=== PATIENT | male | born 1950 | race American Indian/Alaskan Native ===

== ENCOUNTER 2016-06-04 11:04 | Outpatient (CLI) | payer MEDICARE ==
--- NOTE | 2016-06-04 13:30 | XRay Report ---
BILATERAL SHOULDER THREE VIEWS EACH: 06/04/16 11:04:00 CLINICAL: Pain. FINDINGS: Right: No fracture or dislocation. Minimal arthritis of the glenohumeral joint. Mild acromioclavicular joint arthritis. Normal soft tissues. Left: No fracture or dislocation. Mild glenohumeral joint arthritis and degenerative spur at the greater tuberosity of the humerus. Normal acromioclavicular joint. Normal soft tissues. IMPRESSION: Mild bilateral degenerative change.
--- NOTE | 2016-06-04 13:33 | XRay Report ---
CERVICAL SPINE WITH OBLIQUES FIVE VIEWS: 06/04/16 11:04:00 CLINICAL: Neck pain. FINDINGS: Straightening of the C-spine and loss of the normal cervical lordosis. Normal vertebral body alignment through T1. Extensive degenerative disc disease with narrowing of the disc space and large anterior osteophytes from C3-4 through C6-7. No neural foraminal stenosis. No fracture or subluxation. Normal soft tissues and airway. Mild left C3-4 and C4-5 neural foraminal narrowing. The right neuroforamen are intact. No fracture. IMPRESSION: Degenerative change as described above.
== END 2016-06-04 11:05 | disposition home or self-care (01) ==
LOC: SPVIMAG 11:04
DX: M47.892 Other spondylosis, cervical region (principal); M50.30 Other cervical disc degeneration, unspecified cervical region; M25.78 Osteophyte, vertebrae; M13.812 Other specified arthritis, left shoulder; M13.811 Other specified arthritis, right shoulder
CPT/HCPCS: 72050

== ENCOUNTER 2017-06-22 14:45 | Outpatient (CLI) | payer MEDICARE ==
--- NOTE | 2017-06-22 15:09 | XRay Report ---
XRAY CHEST TWO VIEWS: 06/22/17 14:45:00 CLINICAL: Cough. COMPARISON: None FINDINGS: Normal heart and pulmonary vasculature. The lungs are mildly hyperexpanded and clear.The bones and soft tissues are unremarkable. IMPRESSION: Mild pulmonary hyperinflation but otherwise normal.
== END 2017-06-22 14:46 | disposition home or self-care (01) ==
LOC: SPVIMAG 14:45
DX: R05 Cough (principal)
CPT/HCPCS: 71046

== ENCOUNTER 2018-11-10 18:00 | Inpatient (IN) | payer MEDICARE ==
[2018-11-10] MEDS ORDERED: SODIUM CHLORIDE 0.9% 500 ML 500 ML IV ONE ×4 (18:23→22:03)
--- NOTE | 2018-11-10 18:30 | Emergency Department Report ---
ED GI Bleed HPI - General Chief complaint: GI Bleed Stated complaint: GI BLEED/HYPOTENSION Time Seen by Provider: 11/10/18 18:14 Source: patient, EMS ( EMS documentation not available at time of chart dictation ), RN notes reviewed Mode of arrival: Stretcher Limitations: No Limitations - History of Present Illness Initial comments: Primary care Dr.: Dr Byrnes Cardiology: Dr Mcgee Past medical history: Heart disease, stent, high cholesterol, hypertension This is a 68-year-old gentleman. This patient is not known to this provider previously. The patient presents to the ER today with complaint of painless bright red blood per rectum. This started earlier on today. It was accompanied by a sensation of almost passing out. This is now resolved. Patient takes aspirin and prasgurel He denies taking other systemic anticoagulation. He thinks that he may have had a colonoscopy within the past decade, but is not sure. He does not know who per formed the colonoscopy. He does not know the results of recent colonoscopy. Bleeding is constant, does not radiate anywhere, does not have exacerbating or relieving factors. Besides near syncope, he denies additional complaints. MD complaint: gross hematochezia -: Sudden Quality: painless Consistency: constant Improves with: none Worsens with: none Context: blood thinners, near syncope - Related Data Home Medications Medication Instructions Recorded Confirmed Last Taken Aspirin EC 81 mg PO QDAY 07/31/15 07/31/15 07/29/15 Effient 10 mg PO DAILY 07/31/15 07/31/15 07/29/15 Lisinopril [Zestril TAB] 40 mg PO QDAY 07/31/15 07/31/15 07/30/15 Metoprolol [Lopressor TAB] 25 mg PO BID 07/31/15 07/31/15 07/31/15 Simvastatin 40 mg PO DAILY 07/31/15 07/31/15 07/31/15 Allergies Allergy/AdvReac Type Severity Reaction Status Date / Time No Known Allergies Allergy Verified 06/19/15 11:33 ED Review of Systems ROS: Stated complaint: GI BLEED/HYPOTENSION Other details as noted in HPI Comment: All other systems reviewed and negative Cardiovascular: other (near syncope) Gastrointestinal: hematochezia ED Past Medical Hx - Past Medical History Previous Medical History?: Yes Hx Hypertension: Yes Hx Heart Attack/AMI: Yes (2014) Hx Congestive Heart Failure: Yes Hx GERD: Yes Additional medical history: CAD. HIGH CHOLESTEROL - Surgical History Past Surgical History?: Yes Hx Coronary Stent: Yes (X1) - Social History Smoking Status: Current Every Day Smoker Substance Use Type: None - Medications Home Medications: Home Medications Medication Instructions Recorded Confirmed Last Taken Type Aspirin EC 81 mg PO QDAY 07/31/15 07/31/15 07/29/15 History Effient 10 mg PO DAILY 07/31/15 07/31/15 07/29/15 History Lisinopril [Zestril TAB] 40 mg PO QDAY 07/31/15 07/31/15 07/30/15 History Metoprolol [Lopressor TAB] 25 mg PO BID 07/31/15 07/31/15 07/31/15 History Simvastatin 40 mg PO DAILY 07/31/15 07/31/15 07/31/15 History ED Physical Exam - General Limitations: No Limitations General appearance: alert, anxious - Head Head exam: Present: atraumatic, normocephalic - Eye Eye exam: Present: normal appearance, EOMI. Absent: nystagmus - ENT ENT exam: Present: normal exam, normal orophraynx, mucous membranes moist, normal external ear exam - Neck Neck exam: Present: normal inspection, full ROM. Absent: tenderness, meningismus - Respiratory Respiratory exam: Present: normal lung sounds bilaterally. Absent: respiratory distress - Cardiovascular Cardiovascular Exam: Present: regular rate, normal rhythm, normal heart sounds. Absent: bradycardia, tachycardia, irregular rhythm, systolic murmur, diastolic murmur, rubs, gallop - GI/Abdominal GI/Abdominal exam: Present: soft. Absent: distended, tenderness, guarding, rebound, rigid, pulsatile mass - Rectal Rectal exam: Present: normal inspection, normal rectal tone, heme (+) stool, bloody stool, other (chaperoned by nurse Anjel Arizmendi). Absent: decreased rectal tone, heme (-) stool - Extremities Exam Extremities exam: Present: normal inspection, full ROM, other (2+ pulses noted in the bilateral upper, lower extremities. There is no long bone tenderness. Musculoskeletal compartments are soft. The pelvis is stable.). Absent: pedal edema, joint swelling, calf tenderness - Back Exam Back exam: Present: normal inspection, full ROM. Absent: tenderness, CVA tenderness (R), CVA tenderness (L), paraspinal tenderness, vertebral tenderness - Neurological Exam Neurological exam: Present: alert, oriented X3, normal gait, other (there is no facial droop. The tongue is midline. Extraocular movements are intact bilaterally. Patient speaking in full complete sentences. Shoulder shrug is intact bilaterally. Hearing is grossly intact bilaterally. Visual acuity intact to finger counting and color perception at a close distance. 5/5 strength 4 extremities. Sensation intact to light touch in 4 extremities.). Absent: motor sensory deficit - Psychiatric Psychiatric exam: Present: anxious - Skin Skin exam: Present: warm, dry, intact, normal color. Absent: rash ED Course Vital Signs 11/10/18 11/10/18 11/10/18 18:03 19:00 19:15 Temperature 98.4 F Pulse Rate 71 67 65 Respiratory 16 11 L 14 Rate Blood Pressure 145/69 Blood Pressure 145/69 140/74 149/81 [Right] O2 Sat by Pulse 97 97 98 Oximetry 11/10/18 11/10/18 11/10/18 19:30 19:45 20:05 Temperature Pulse Rate 64 74 67 Respiratory 10 L 19 15 Rate Blood Pressure Blood Pressure 149/81 157/76 116/55 [Right] O2 Sat by Pulse 99 98 97 Oximetry 11/10/18 11/10/18 11/10/18 20:06 20:15 20:42 Temperature Pulse Rate 68 76 65 Respiratory 15 15 11 L Rate Blood Pressure Blood Pressure 116/55 102/67 90/53 [Right] O2 Sat by Pulse 96 97 96 Oximetry - Reevaluation(s) Reevaluation #1: 11/10/18 18:28 Differential diagnosis, including not limited to: Angiodysplasia, upper GI bleed, lower GI bleed, diverticulosis, colonic malignancy Assessment and plan: [id number] gentleman, with bright red blood per rectum on examination. He is afebrile with reassuring vital signs. He denies additional injuries and additional complaints. 2 large-bore IVs ordered, ekg monitor tech ordered, IV fluids ordered, GI consult will be obtained, planned to admit the patient to the medical service for urgent GI consultation and colonoscopy. Discussed this with the patient who verbalizes understanding, and who is amenable to this plan of care. Reevaluation #2: 11/10/18 20:11 Laboratory studies reviewed and appreciated. Magnesium supplementation ordered. Additional IV fluids ordered. Upon coming back from the bathroom, while in the wheelchair, the patient had a vagal event, and temporarily lost consciousness. This lasted for a few seconds, and it is painless. The patient is now back to his baseline. Counseled patient to not walk to the bathroom, or do any walking whatsoever. Case is presented to Hospital nurse practitioner, Lauren Kuhn, who accepted the patient to the medical service. We have conveyed gastroenterology's request for cardiology consultation, will defer to the inpatient team to arrange this. Reevaluation #3: 11/10/18 20:37 Patient had large bright red blood bowel movement, almost a liter. He is now hypotensive, with blood pressure in the 70s. Additional IV fluids ordered. A repeat CBC ordered. We will re discuss with gastroenterology. Reevaluation #4: 11/10/18 21:05 Discussed with Brain at the [place] [facility]. They do not specifically recommend antidote or reversal agent or platelets at this time. They recommend generalized supportive care, identification of source of bleeding. Reevaluation #5: 11/10/18 22:12 CT angiogram shows active extravasation. Were discussed with gastroenterology, Dr. Moise, who has graciously involve the services of our interventional radiologist, Dr. Raghav Avilez is coming in as we speak to take the patient to the catheterization lab, for endovascular intervention. Hospital medicine team is updated, patient is up triaged to the ICU. At interventional radiology's request, we have discussed the case with our general surgeon on-call, Dr. Luis Hi, indicates he is available for emergent consultation and right hemicolectomy, if hemostasis could not be obtained otherwise. central line placed 11/11/18 00:25 - Consultations Consultation #1: 11/10/18 19:33 Discussed with gastroenterology, Dr. Moise They group will follow in consultation. - Central Line Placement Left IJ Consent Obtained: verbal consent, written consent, emergent situation Time Out Performed: Yes Patient Placed on Monitor/Pulse Ox: Yes MD Prep: gloves Central Line Prep: Povidone-Iodine 1%, Chlorhexidine scrub, sterile drapes applied Local Anesthesia Used: Lidocaine 2%, with Epi Amount of Anesthesia Used (mls): 8 Ultrasound Used for Placement: Yes Central Line Lumen Inserted: triple Bloods Obtained for Lab: No Central Line Position: good blood return, all ports aspirated, flus, sutured in place with 2-0 Dressing Applied: Tegaderm Post Procedure X-Ray: tip of catheter in good p Patient Tolerated Procedure: well Complications: none ED Medical Decision Making - Lab Data Result diagrams: 11/10/18 21:57 11/10/18 18:31 Vital Signs 11/10/18 18:03 Temperature 98.4 F Pulse Rate 71 Respiratory 16 Rate Blood Pressure 145/69 Blood Pressure 145/69 [Right] O2 Sat by Pulse 97 Oximetry - EKG Data -: EKG Interpreted by Me EKG shows normal: sinus rhythm Rate: normal - EKG Data 11/10/18 18:29 No endorsement of chest pain, the EKG is not consistent with ST elevation myocardial infarction. Sinus rhythm, 68 bpm, normal axis, QTC within normal limits, left ventricular hypertrophy, incomplete right bundle-branch block. - Radiology Data Radiology results: report reviewed, image reviewed interpreted by me: X-ray of the chest shows no acute disease, triple lumen catheter noted in the left hemithorax Print Report Referring Physician: GLORIA REED Patient Name: NGUYEN GODWIN Date of : 1950 Sex: Male Report Date: 2018-11-10 Report Status: Finalized Findings [facility] [address] [id number] Cat Scan Report Signed Patient: NGUYEN GODWIN MR#: [id number] 14 : 1950 Acct:[id number] Age/Sex: 68 / M ADM Date: 11/10/18 Loc: 4A [id number]: RODRICK STEEL MD Ordering Physician: GLORIA REED MD Date of Service: 11/10/18 Procedure(s): CT angio abdomen pelvis Accession Number(s): [id number] cc: GLORIA REED MD CTA ABDOMEN AND PELVIS WITH AND WITHOUT IV CONTRAST INDICATION: lower gi bleed CONTRAST: 100 cc Omnipaque 350 IV COMPARISON: None available. Three-plane MIP reconstructions were produced. All CT scans at this location are performed using CT dose reduction for ALARA by means of automated exposure control. FINDINGS: Lung bases show mild chronic changes but no infiltrates or masses. No pneumoperitoneum is seen. No urinary tract calculi or evidence of obstruction are seen. No evidence of bowel obstruction is noted. Colonic diverticulosis is seen involving multiple areas including the proximal right colon. No definite colonic wall thickening is seen with no evidence of acute diverticulitis. Some fluid is seen in the colon with some air-fluid levels noted but no dilatation is seen. Appendix appears within normal limits. No obvious small bowel abnormalities are seen. Stomach shows no significant abnormalities. Right renal cysts are seen. No other masses are noted. No focal inflammatory changes are seen. No free fluid is noted. No lymphadenopathy is seen. Gallbladder and bile ducts appear within normal limits. Aorta shows only mild atherosclerotic changes. No evidence of aortic dissection or aneurysmal dilatation is seen. No stenosis of significance is noted in the aorta. Celiac axis and superior mesenteric artery opacify well with no obvious stenosis. A small inferior mesenteric artery opacifies well. There are 3 left and 2 right renal arteries with mild atherosclerotic changes seen but no obvious significant stenosis identified and good flow seen distally. Good flow is seen in the iliac systems bilaterally with no aneurysmal dilatation or significant stenosis identified. Flow is seen in the upper femoral systems bilaterally without obvious significant abnormality. IMPRESSION: 1. No definite acute abnormalities are seen 2. No significant arterial abnormalities are noted Signer Name: Jose A Corley MD Signed: 11/10/2018 10:07 PM Workstation Name: [id number] Transcribed By: MONIKA Dictated By: Jose A Corley MD Electronically Authenticated By: Jose A Corley MD Signed Date/Time: 11/10/18 7357 Critical Care Time: Yes Critical care time in (mins) excluding proc time.: 120 Critical care attestation.: If time is entered above; I have spent that time in minutes in the direct care of this critically ill patient, excluding procedure time. ED Disposition Clinical Impression: LGI bleed, Hemorrhagic shock Disposition: OP ADMIT IP TO THIS HOSP Is pt being admited?: Yes Does the pt Need Aspirin: No Condition: Critical
[2018-11-10 18:48] LABS: Basophils # (Auto) 0.1 K/mm3 (0.0-0.1); Basophils % (Auto) 0.9 % (0.0-1.8); Eosinophils # (Auto) 0.1 K/mm3 (0.0-0.4); Eosinophils % (Auto) 0.9 % (0.0-4.3); Hematocrit 38.4 % (35.5-45.6); Hemoglobin 12.5 gm/dl (11.8-15.2); Lymphocytes # (Auto) 2.2 K/mm3 (1.2-5.4); Lymphocytes % (Auto) 21.9 % (13.4-35.0); Mean Corpuscular HGB Conc 33 % (32-34); Mean Corpuscular Volume 85 fl (84-94); Monocytes # (Auto) 0.8 K/mm3 (0.0-0.8); Monocytes % (Auto) 7.9 % (0.0-7.3); Red Cell Distribution Width 14.7 % (13.2-15.2)
[2018-11-10 19:08] LABS: Platelet Count 171 K/mm3 (140-440)
[2018-11-10 19:29] LABS: Albumin 3.3 g/dL (3.9-5)
[2018-11-10 19:33] LABS: INR 1.51 (0.87-1.13); Partial Thromboplastin Time 20.7 Sec. (24.2-36.6)
[2018-11-10 19:59] LABS: Alanine Aminotransferase 23 units/L (7-56); BUN/Creatinine Ratio 11; Blood Urea Nitrogen 13 mg/dL (9-20); Calcium 8.4 mg/dL (8.4-10.2); Hemolysis Index 53
[2018-11-10] MEDS ORDERED: MAGNESIUM SULFATE 2 GM/50 ML BAG IV ONE (20:11)
[2018-11-10] MEDS ORDERED: ACETAMINOPHEN 325 MG TAB PO PRN (20:30)
[2018-11-10] MEDS ORDERED: ONDANSETRON 4 MG/2 ML INJ IV PRN (20:30)
[2018-11-10] MEDS ORDERED: SODIUM CHLORIDE 0.9% 1000 ML 2,000 ML IV ONE (20:34)
[2018-11-10] MEDS ORDERED: SODIUM CHLORIDE 0.9% 1000 ML 2,000 ML ONE (20:36)
[2018-11-10 20:48] LABS: Hematocrit 31.5 % (35.5-45.6); Hemoglobin 10.2 gm/dl (11.8-15.2)
[2018-11-10] MEDS ORDERED: SODIUM CHLORIDE 0.9% 1000 ML 1,000 ML IV ONE (21:17)
[2018-11-10] MEDS ORDERED: LIDOCAINE 2%/EPINEPHRINE 1:100,000 VIAL (20 ML) INFILTRATI ONE (21:25)
[2018-11-10] MEDS ORDERED: LIDOCAINE (1%) 10 MG/1 ML VIAL 20 ML MDV ONE (21:30)
[2018-11-10] MEDS ORDERED: NORepinephrine/NS 4 MG-250 ML 4 MG/250 ML BAG IV SCH (22:00)
[2018-11-10 22:02] LABS: Hemoglobin 6.1 gm/dl (11.8-15.2)
[2018-11-10] MEDS ORDERED: DESMOPRESSIN ACETATE IV ONE (22:04)
[2018-11-10] MEDS ORDERED: SODIUM CHLORIDE 0.9% IV ONE (22:04)
[2018-11-10 22:05] LABS: Hematocrit 18.9 % (35.5-45.6)
--- NOTE | 2018-11-10 22:11 | Cat Scan Report ---
CTA ABDOMEN AND PELVIS WITH AND WITHOUT IV CONTRAST INDICATION: lower gi bleed CONTRAST: 100 cc Omnipaque 350 IV COMPARISON: None available. Three-plane MIP reconstructions were produced. All CT scans at this location are performed using CT d ose reduction for ALARA by means of automated exposure control. FINDINGS: Lung bases show mild chronic changes but no infiltrates or masses. No pneumoperitoneum is s een. No urinary tract calculi or evidence of obstruction are seen. No evidence of bowel obstruction i s noted. Colonic diverticulosis is seen involving multiple areas including the proximal right colon. No definite colonic wall thickening is seen with no evidence of acute diverticulitis. Some fluid is s een in the colon with some air-fluid levels noted but no dilatation is seen. Appendix appears within normal limits. No obvious small bowel abnormalities are seen. Stomach shows no significant abnormalit ies. Right renal cysts are seen. No other masses are noted. No focal inflammatory changes are seen. No james e fluid is noted. No lymphadenopathy is seen. Gallbladder and bile ducts appear within normal limits. Aorta shows only mild atherosclerotic changes. No evidence of aortic dissection or aneurysmal dilatat ion is seen. No stenosis of significance is noted in the aorta. Celiac axis and superior mesenteric a rtery opacify well with no obvious stenosis. A small inferior mesenteric artery opacifies well. There are 3 left and 2 right renal arteries with mild atherosclerotic changes seen but no obvious signific ant stenosis identified and good flow seen distally. Good flow is seen in the iliac systems bilateral ly with no aneurysmal dilatation or significant stenosis identified. Flow is seen in the upper femora l systems bilaterally without obvious significant abnormality. IMPRESSION: 1. No definite acute abnormalities are seen 2. No significant arterial abnormalities are noted Signer Name: Jose A Corley MD Signed: 11/10/2018 10:07 PM Workstation Name: [id number]
[2018-11-10] MEDS ORDERED: SODIUM CHLORIDE 0.9% 1000 ML 1,000 ML ONE (22:24)
[2018-11-10] MEDS ORDERED: MIDAZOLAM 2 MG/2 ML INJ ONE ×2 (22:36→23:15)
[2018-11-10] MEDS ORDERED: HEPARIN 10,000 UNITS/10 ML VIAL ONE (22:37)
[2018-11-10] MEDS ORDERED: fentaNYL 100 MCG/2 ML INJ ONE ×2 (22:37→23:16)
[2018-11-10] MEDS ORDERED: HEPARIN/NS 5000 UNIT/500ML 1,000 ML IR ONE (22:37)
[2018-11-10] MEDS ORDERED: LIDOCAINE 1%/EPINEPHRINE 1:100,000 VIAL (20 ML) INFILTRATI ONE (22:38)
[2018-11-10] MEDS ORDERED: SODIUM CHLORIDE 0.9% 500 ML 500 ML ONE (22:38)
--- NOTE | 2018-11-10 22:44 | History and Physical Report ---
History of Present Illness Date of examination: 11/10/18 Date of admission: 11/10/18 20:30 Chief complaint: Bright red blood per rectum History of present illness: 68-year-old -[place]ish male who is a current smoker with history of coronary artery disease status post stent 1, HLD, HTN, GERD, PR (2013), and CHF who presents to [facility] ED with complaints of painless bright red blood per rectum. Pt states that he started experiencing painless bright red blood per rectum earlier today. Shortly as passing the blood felt light headed and describes it as "feeling like he was going to pass out". Pt is currently takes aspirin and prasgurel. He denies use of any other anticoagulation. He states that he's had a colonoscopy in the past but does not recall the date, results, or physician. Denies: n/v/, fever, abdominal pain, rectal pain, recent rectal trauma, or hematuria Past History Past Medical History: acute PR (2013), CAD, GERD, heart failure, hypertension, hyperlipidemia Past Surgical History: Other (stent x1, ) Social history: , lives with family, smoking (current everday smoker) Family history: no significant family history Medications and Allergies Allergies Allergy/AdvReac Type Severity Reaction Status Date / Time No Known Allergies Allergy Verified 06/19/15 11:33 Home Medications Medication Instructions Recorded Confirmed Last Taken Type Aspirin EC 81 mg PO QDAY 07/31/15 07/31/15 07/29/15 History Effient 10 mg PO DAILY 07/31/15 07/31/15 07/29/15 History Lisinopril [Zestril TAB] 40 mg PO QDAY 07/31/15 07/31/15 07/30/15 History Metoprolol [Lopressor TAB] 25 mg PO BID 07/31/15 07/31/15 07/31/15 History Simvastatin 40 mg PO DAILY 07/31/15 07/31/15 07/31/15 History Active Meds: Active Medications Acetaminophen (Tylenol) 650 mg PO Q4H PRN PRN Reason: Pain MILD(1-3)/Fever >100.5/GAYTAN Docusate Sodium (Colace) 100 mg PO BID JACK Norepinephrine (Levophed Drip 4 Mg/Ns 250 Ml) 4 mg in 250 mls @ 7.5 mls/hr IV TITR JACK; Protocol Ondansetron HCl (Zofran) 4 mg IV Q6H PRN PRN Reason: Nausea And Vomiting Sodium Chloride (Sodium Chloride Flush Syringe 10 Ml) 10 ml IV BID JACK Sodium Chloride (Sodium Chloride Flush Syringe 10 Ml) 10 ml IV PRN PRN PRN Reason: LINE FLUSH Review of Systems All systems: negative Gastrointestinal: hematochezia (painless) Neurological: weakness Exam - Physical Exam Narrative exam: Physical exam General appearance: Present: No acute distress, alert and oriented 3, well developed, pleasant, adult -[place]ish male - EENT Eyes: Present: PERRL, EOM intact, ENT: hearing intact, normal dentition - Neck Neck: Present: supple, normal ROM - Respiratory Respiratory effort: Non-labored Respiratory: CTA - Cardiovascular Heart rate: 68 (bpm) Rhythm: SR Heart Sounds: Present: - Extremities Extremities: no ischemia, pulses intact, - Peripheral Assessment Peripheral Pulses: within normal limits - Abdominal General gastrointestinal: soft, non-tender, normal bowel sounds, + heme stool - Integumentary Integumentary: Present: warm, dry, - Musculoskeletal Musculoskeletal: Able to move all extremities, generalized weakness -Neurological Neurological: CN II-XII grossly intact - Psychiatric Psychiatric: cooperative - Constitutional Vitals: Temp Pulse Resp BP Pulse Ox 98.4 F 68 15 116/55 96 11/10/18 18:03 11/10/18 20:06 11/10/18 20:06 11/10/18 20:06 11/10/18 20:06 Results - Labs CBC & Chem 7: 11/10/18 21:57 11/10/18 18:31 Labs: Laboratory Last Values WBC 10.1 K/mm3 (4.5-11.0) 11/10/18 18:31 RBC 4.50 M/mm3 (3.65-5.03) 11/10/18 18:31 Hgb 6.1 gm/dl (11.8-15.2) L D 11/10/18 21:57 Hct 18.9 % (35.5-45.6) L* D 11/10/18 21:57 MCV 85 fl (84-94) 11/10/18 18:31 MCH 28 pg (28-32) 11/10/18 18:31 MCHC 33 % (32-34) 11/10/18 18:31 RDW 14.7 % (13.2-15.2) 11/10/18 18:31 Plt Count 171 K/mm3 (140-440) 11/10/18 18:31 Lymph % (Auto) 21.9 % (13.4-35.0) 11/10/18 18:31 [place] % (Auto) 7.9 % (0.0-7.3) H 11/10/18 18:31 Eos % (Auto) 0.9 % (0.0-4.3) 11/10/18 18:31 Baso % (Auto) 0.9 % (0.0-1.8) 11/10/18 18:31 Lymph # 2.2 K/mm3 (1.2-5.4) 11/10/18 18:31 [place] # 0.8 K/mm3 (0.0-0.8) 11/10/18 18:31 Eos # 0.1 K/mm3 (0.0-0.4) 11/10/18 18:31 Baso # 0.1 K/mm3 (0.0-0.1) 11/10/18 18:31 Seg Neutrophils % 68.4 % (40.0-70.0) 11/10/18 18:31 Seg Neutrophils # 6.9 K/mm3 (1.8-7.7) 11/10/18 18:31 PT 17.8 Sec. (12.2-14.9) H 11/10/18 18:31 INR 1.51 (0.87-1.13) H 11/10/18 18:31 APTT 20.7 Sec. (24.2-36.6) L 11/10/18 18:31 Sodium 141 mmol/L (137-145) 11/10/18 18:31 Potassium 4.1 mmol/L (3.6-5.0) 11/10/18 18:31 Chloride 106.1 mmol/L (98-107) 11/10/18 18:31 Carbon Dioxide 21 mmol/L (22-30) L 11/10/18 18:31 18 mmol/L 11/10/18 18:31 BUN 13 mg/dL (9-20) 11/10/18 18:31 1.2 mg/dL (0.8-1.5) 11/10/18 18:31 Estimated GFR > 60 ml/min 11/10/18 18:31 11 % 11/10/18 18:31 Glucose 107 mg/dL (75-100) H 11/10/18 18:31 POC Glucose 101 (70-105) 11/10/18 20:11 Calcium 8.4 mg/dL (8.4-10.2) 11/10/18 18:31 Magnesium 1.60 mg/dL (1.7-2.3) L 11/10/18 18:31 0.50 mg/dL (0.1-1.2) 11/10/18 18:31 AST 40 units/L (5-40) 11/10/18 18:31 ALT 23 units/L (7-56) 11/10/18 18:31 70 units/L (35-129) 11/10/18 18:31 987 units/L (55-170) H 11/10/18 18:31 5.9 g/dL (6.3-8.2) L 11/10/18 18:31 3.3 g/dL (3.9-5) L 11/10/18 18:31 1.3 % 11/10/18 18:31 Blood Type O POSITIVE 11/10/18 18:31 Antibody Screen Negative 11/10/18 18:31 Crossmatch See Detail 11/10/18 18:31 - Imaging and Cardiology Imaging and Cardiology: CT angiogram abdomen/pelvis: FINDINGS: Lung bases show mild chronic changes but no infiltrates or masses. No pneumoperitoneum is seen. No urinary tract calculi or evidence of obstruction are seen. No evidence of bowel obstruction is noted. Colonic diverticulosis is seen involving multiple areas including the proximal right colon. No definite colonic wall thickening is seen with no evidence of acute diverticulitis. Some fluid is seen in the colon with some air-fluid levels noted but no dilatation is seen. Appendix appears within normal limits. No obvious small bowel abnormalities are seen. Stomach shows no significant abnormalities. Right renal cysts are seen. No other masses are noted. No focal inflammatory changes are seen. No free fluid is noted. No lymphadenopathy is seen. Gallbladder and bile ducts appear within normal limits. Aorta shows only mild atherosclerotic changes. No evidence of aortic dissection or aneurysmal dilatation is seen. No stenosis of significance is noted in the aorta. Celiac axis and superior mesenteric artery opacify well with no obvious stenosis. A small inferior mesenteric artery opacifies well. There are 3 left and 2 right renal arteries with mild atherosclerotic changes seen but no obvious significant stenosis identified and good flow seen distally. Good flow is seen in the iliac systems bilaterally with no aneurysmal dilatation or significant stenosis identified. Flow is seen in the upper femoral systems bilaterally witho ut obvious significant abnormality. IMPRESSION: 1. No definite acute abnormalities are seen 2. No significant arterial abnormalities are noted Assessment and Plan Assessment and plan: 68-year-old -[place]ish male who is a current smoker with history of coronary artery disease status post stent 1, HLD, HTN, GERD, PR (2013), and CHF who presents to [facility] ED with complaints of painless bright red blood per rectum. Pt states that he started experiencing painless bright red blood per rectum earlier today. On presentation pt was normotensive with hgb within normal limits. He was alert and oriented x3, and able to maintain conversation. Around 8pm while coming back from restroom via wheelchair pt had vagal event and briefly lost consciousness. Approximately 30 minutes later he had large bright red blood bowel movement. He became hypotensive, with SBP in the 70's. He received fluid resuscitation, and was transfued. A central line was placed and he was started on levophed gtt to maintain MAP of 65. CT angiogram shows active extravasation GI and IR was updated on pt's current condition. At this time pt is in cardiac cath technician undergoing embolization. Lower GI Bleed ??Suspicion for Active Ascending colonic bleed- per IR -+ heme stool -G I following -Pt taken to cardiac cath technician for embolization. If fails will Gen. surgery for hemicolectomy. Hemorrhagic shock -acute blood loss -hbg now 6.1 (trending down from 12.5 on admission) -Transfused Hypotension -SBP in 70's -Unresponsive to food resuscitation -Started on levophed gtt Tobacco abuse -Current every day smoker -Nicotine patch when necessary -Performed counseling when patient more stable DVT PPX -active gi bleed. holding all anticoagulation Advance Directives: No VTE prophylaxis?: Mechanical Reason for no VTE Prophylaxis: Bleeding Plan of care discussed with patient/family: Yes
--- NOTE | 2018-11-10 22:51 | XRay Report ---
CHEST 1 VIEW 2150 INDICATION / CLINICAL INFORMATION: central line placement. COMPARISON: 06/22/2017 FINDINGS: SUPPORT DEVICES: A left jugular central line is seen with tip in the area of the proximal left brachi ocephalic vein. HEART / MEDIASTINUM: Stable LUNGS / PLEURA: No significant pulmonary or pleural abnormality. No pneumothorax. ADDITIONAL FINDINGS: No significant additional findings. IMPRESSION: Left jugular line position as above without obvious complication Signer Name: Jose A Corley MD Signed: 11/10/2018 10:46 PM Workstation Name: [id number]
[2018-11-10] MEDS ORDERED: SODIUM CHLORIDE 0.9% 500 ML 1,000 ML ONE (23:04)
[2018-11-10] MEDS ORDERED: GELATIN SPONGE SIZE 50 TP ONE (23:11)
[2018-11-10] MEDS ORDERED: PROPOFOL 0 MG/0 ML BOTTLE IV ONE (23:12)
--- NOTE | 2018-11-11 00:25 | Consultation ---
History of Present Illness - Reason for Consult Consult date: 11/11/18 Massive GI bleed - History of Present Illness 68-year-old -[place] male who is a current smoker with history of co ronary artery disease status post stent 1, HLD, HTN, GERD, [place] (2013), and CHF who presents to [facility] ED with complaints of painless bright red blood per rectum. Pt states that he started experiencing painless bright red blood per rectum earlier today. Shortly as passing the blood felt light headed and describes it as "feeling like he was going to pass out". Pt is currently takes aspirin and prasgurel. He denies use of any other anticoagulation. He states that he's had a colonoscopy in the past but does not recall the date, results, or physician. Denies: n/v/, fever, abdominal pain, rectal pain, recent rectal trauma, or hematuria GI was consulted and requested review of CT scan by vascular which demonstrated extravasation from the ascending colon. Patient is currently hemodynamically unstable and hypotensive. In order to correct his hypotension, levophed was started and the dose was maxed. With max levophed, his pressure normalized. Large amount of blood/clots were around the room and actively being passed. Patient was in active distress. Past History Past Medical History: acute SC (2013), CAD, GERD, heart failure, hypertension, hyperlipidemia Past Surgical History: Other (stent x1, ) Social history: , lives with family, smoking (current everday smoker) Family history: no significant family history Medications and Allergies Allergies Allergy/AdvReac Type Severity Reaction Status Date / Time No Known Allergies Allergy Verified 06/19/15 11:33 Home Medications Medication Instructions Recorded Confirmed Last Taken Type Aspirin EC 81 mg PO QDAY 07/31/15 07/31/15 07/29/15 History Effient 10 mg PO DAILY 07/31/15 07/31/15 07/29/15 History Lisinopril [Zestril TAB] 40 mg PO QDAY 07/31/15 07/31/15 07/30/15 History Metoprolol [Lopressor TAB] 25 mg PO BID 07/31/15 07/31/15 07/31/15 History Simvastatin 40 mg PO DAILY 07/31/15 07/31/15 07/31/15 History Active Meds: Active Medications Acetaminophen (Tylenol) 650 mg PO Q4H PRN PRN Reason: Pain MILD(1-3)/Fever >100.5/GAYTAN Docusate Sodium (Colace) 100 mg PO BID [facility] Norepinephrine (Levophed Drip 4 Mg/Ns 250 Ml) 4 mg in 250 mls @ 7.5 mls/hr IV TITR JACK; Protocol Last Admin: 11/10/18 22:00 Dose: 2 mcg/min, 7.5 mls/hr Documented by: Nicotine (Habitrol) 14 mg TD QDAY [facility] Ondansetron HCl (Zofran) 4 mg IV Q6H PRN PRN Reason: Nausea And Vomiting Sodium Chloride (Sodium Chloride Flush Syringe 10 Ml) 10 ml IV BID [facility] Sodium Chloride (Sodium Chloride Flush Syringe 10 Ml) 10 ml IV PRN PRN PRN Reason: LINE FLUSH Review of Systems ROS unobtainable: due to mental status Exam - Constitutional Vitals: Temp Pulse Resp BP Pulse Ox 98.4 F 65 11 L 90/53 96 11/10/18 18:03 11/10/18 20:42 11/10/18 20:42 11/10/18 20:42 11/10/18 20:42 General appearance: Present: severe distress (GI bleeding, active, in discomfort) - EENT Eyes: Present: EOM intact ENT: hearing intact - Respiratory Respiratory effort: normal - Abdominal General gastrointestinal: Present: other (active clots passing) - Psychiatric Psychiatric: agitated Results - Labs CBC & Chem 7: 11/11/18 07:24 11/11/18 07:24 Labs: Abnormal lab results 11/10/18 11/10/18 11/10/18 Range/Units 18:31 18:31 18:31 Hgb (11.8-15.2) gm/dl Hct (35.5-45.6) % [place] % (Auto) 7.9 H (0.0-7.3) % PT 17.8 H (12.2-14.9) Sec. INR 1.51 H (0.87-1.13) APTT 20.7 L (24.2-36.6) Sec. Carbon Dioxide 21 L (22-30) mmol/L Glucose 107 H (75-100) mg/dL Magnesium 1.60 L (1.7-2.3) mg/dL Total Creatine Kinase 987 H (55-170) units/L Total Protein 5.9 L (6.3-8.2) g/dL Albumin 3.3 L (3.9-5) g/dL Crossmatch 11/10/18 11/10/18 11/10/18 Range/Units 18:31 20:38 21:57 Hgb 10.2 L 6.1 L D (11.8-15.2) gm/dl Hct 31.5 L D 18.9 L* D (35.5-45.6) % [place] % (Auto) (0.0-7.3) % PT (12.2-14.9) Sec. INR (0.87-1.13) APTT (24.2-36.6) Sec. Carbon Dioxide (22-30) mmol/L Glucose (75-100) mg/dL Magnesium (1.7-2.3) mg/dL Total Creatine Kinase (55-170) units/L Total Protein (6.3-8.2) g/dL Albumin (3.9-5) g/dL Crossmatch See Detail - Imaging and Cardiology CT scan - abdomen: report reviewed, image reviewed Assessment and Plan 68-year-old male with complex past medical history on Effient status post 2 units packed red blood cell transfusion with recommendations for 2 more units packed red blood cell transfusion with DDAVP, and FFP. On max levophed. The patient had a CT scan demonstrating active extravasation from the descending colon. Gastroenterology was consult at an consult to vascular for further evaluation. Patient will be brought emergently for angiography with possible embolization. Patient hemodynamically unstable. Dr. Blevins of general surgery was contacted and family was notified that if this fails to control bleeding, patient will probably require a right extended colectomy.
[2018-11-11] MEDS ORDERED: SODIUM CHLORIDE 0.9% 500 ML 500 ML IV ONE (00:27)
--- NOTE | 2018-11-11 00:44 | Post Operative Note ---
Date of procedure: 11/11/18 Pre-op diagnosis: Massive lower GI bleed Post-op diagnosis: other (Massive lower GI bleed, Left neck large hematoma) Findings: During the case the patient developed a large left neck hematoma around the catheter which was expressed requiring further evaluation. At the conclusion, the catheter was venous, and there was no arterial extravasation. Placed pressure dressing on the left neck. Further evaluation of the catheter tomorrow. Procedure: 1. Ultrasound guided access of the right femoral artery 2. Selection of the celiac artery with angiography 3. Selection of the SMA with angiography 4. Selection of the colic branch of the ileocolic artery 5. Selection of the right colic artery 6. Selection of the ascending branch of the right colic artery 7. Coil embolization of distal marginal branches of the ascending branch of the right colic artery with a 2 mm x 4 cm and 2 mm x 6 cm coil 8. Repeat SMA angiography 9. Selection of the thoracic aorta with aortography 10. Injection of contrast through the left internal jugular vein nontunneled noncuffed triple lumen catheter 11. Ultrasound guided access of the right femoral vein 12. Fluoroscopic guided placement of a right femoral vein triple lumen nontunneled noncuffed catheter Anesthesia: MAC Surgeon: PRANEETH BO Estimated blood loss: minimal Condition: stable Disposition: ICU
--- NOTE | 2018-11-11 00:48 | Operative Report ---
Operative Report Operative Report: EXAM: 1. Ultrasound guided access of the right femoral artery 2. Selection of the celiac artery with angiography 3. Selection of the SMA with angiography 4. Selection of the colic branch of the ileocolic artery 5. Selection of the right colic artery 6. Selection of the ascending branch of the right colic artery 7. Coil embolization of distal marginal branches of the ascending branch of the right colic artery with a 2 mm x 4 cm and 2 mm x 6 cm coil 8. Repeat SMA angiography 9. Selection of the thoracic aorta with aortography 10. Injection of contrast through the left internal jugular vein nontunneled noncuffed triple lumen catheter 11. Ultrasound guided access of the right femoral vein 12. Fluoroscopic guided placement of a right femoral vein triple lumen nontunneled noncuffed catheter DATE: 11/11/18 WEIR FISHERMAN: PRANEETH BO MD INDICATION: Massive lower GI bleed with hemodynamic instability on vasopressors with recent placement of a left internal jugular triple-lumen by the emergency room. MEDICATIONS: Please see nursing report for full details. DEVICES: 2 mm x 4 cm coil 2 mm x 6 cm coil CONTRAST: Please see nursing report for full details PROCEDURE: The risks, benefits, and alternatives were discussed with the patient and his family; written informed consent was obtained by his daughter. The patient's groins were prepped and draped in a sterile fashion as soon as the patient entered the [facility]. 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 I suspected there was an anomalous branching pattern with one of the branches representing the high takeoff of the profunda femoral artery and another the lateral femoral circumflex artery with another vessel being the superficial femoral artery. The middle vessel, largest of the 3, large enough to accommodate a closure device, was selected. Under direct ultrasound guidance, the femoral artery was accessed with a 21-gauge micropuncture needle. 0.018 inch wire was passed into the aorta. Needle was exchanged for transitional dilator. Wire was exchanged for 0.035 inch wire, the transitional dilator was exchanged for a 5 Kinyarwanda sheath. SOS 2 catheter was used to select the celiac artery and digital subtraction angiography was performed demonstrating a normal branching pattern without extravasation or pseudoaneurysm. Catheter was then used to select the SMA and digital subtraction angiography was performed demonstrating extravasation of contrast arising from the hepatic flexure. Using a renegade STC microcatheter and a choice PT floppy wire, the ileocolic artery was selected. Digital subtraction angiography was performed demonstrating a colic branch passing cephalad which was selected. Digital subtraction angiography was performed demonstrating extravasation through collaterals from the ascending branch of the right colic artery. The right colic artery was diminutive in size which is why I originally selected the ileocolic artery believing this may be the right colic artery. At this point, the patient began to develop a hematoma at the left neck triple lumen catheter site and pressure had to be held. Anesthesia was present and we considered intubating the patient for airway protection but the hematoma was expressible. I decided to deal with the massive lower GI bleed before transitioning my attention to the left neck hematoma. Right colic artery was then selected the ascending branch of the right colic artery was then selected. Digital subtraction angiography was performed demonstrating extravasation from the hepatic flexure arising from branches from the descending branch of the right colic artery. These were selected and 2 mm x 4 cm coil was introduced and subsequently a 2 mm x 6 cm coil was introduced into the marginal artery next to these branches. Digital subtraction angiography was repeated demonstrating no extravasation from the hepatic flexure. Microcatheter was removed and the base catheter was aspirated. Digital subtraction angiography was performed through the base catheter demonstrating no extravasation in the hepatic flexure. At this time, one of the ports of the left internal jugular line was removed and the hub was unlocked and there was no significant bleeding most compatible with a venous puncture. Contrast was injected through the line demonstrating the catheter is in the left subclavian vein. Left subclavian vein, brachiocephalic vein and SVC were patent. At this time, the catheter was exchanged for a pigtail catheter which was used to select the thoracic aorta. Digital subtraction angiography was performed demonstrating normal 4 vessel branching with brachiocephalic, right subclavian, common carotid, left common carotid, and left subclavian artery. There is no extravasation or pseudoaneurysm. The tip of the left internal jugular catheter was partially superimposed on the left subclavian artery, but the access site was not compatible with an arterial puncture. I contacted the emergency room physician who told me it was difficult accessing the left internal jugular vein which may be responsible for the hematoma. The arterial catheter was then exchanged over a wire for 0.035 inch wire, and digital subtraction angiography was performed to the sheath. There was no right common femoral artery with a branch of the profunda femoral artery arising from the inferior epigastric artery, the lateral femoral circumflex arising anomalously from the same level, but a lateral location and the superficial femoral artery arose from this this region. Sheath was removed over the wire and the Pro-glide was used to close the femoral artery achieving immediate hemostasis. Sterile dressing applied. At this point, I decided to obtain access for a femoral vein catheter in order to avoid use of the left internal jugular vein line. Ultrasound is used to identify the right common femoral vein which was patent. Under direct ultrasound guidance, the right common femoral vein was accessed with a 21-gauge micropuncture needle. 0.018 inch wire was passed into the IVC. Needle was exchanged for transitional dilator. Wire was exchanged for 0.035 inch wire. Transitional dilator was exchanged for serial dilators and ultimately a 7 Kinyarwanda triple-lumen catheter. Pressure dressing applied to the right groin and the left neck. The left neck hematoma was expressed prior to pressure dressing placement. Patient tolerated the procedure well. At the conclusion of the procedure, all of the patient's pressors were weaned off and he remained normotensive. FINDINGS: Please see procedure note above. IMPRESSION: 1. Successful coil embolization of arterial extravasation as described above with selection of multiple vessels with angiography. 2. Successful selection of the thoracic aorta with aortography. 3. Successful venography through the left internal jugular vein catheter. 4. Successful ultrasound and fluoroscopically guided placement of a right common femoral vein triple lumen catheter.
[2018-11-11] MEDS ORDERED: SODIUM CHLORIDE 0.9% 1000 ML 1,000 ML IV SCH (03:00)
[2018-11-11 08:24] LABS: Eosinophils % (Auto) 0.1 % (0.0-4.3); Hematocrit 38.6 % (35.5-45.6); Hemoglobin 12.7 gm/dl (11.8-15.2); Lymphocytes # (Auto) 1.2 K/mm3 (1.2-5.4); Lymphocytes % (Auto) 9.8 % (13.4-35.0); Mean Corpuscular HGB Conc 33 % (32-34); Mean Corpuscular Volume 88 fl (84-94); Monocytes # (Auto) 0.9 K/mm3 (0.0-0.8); Monocytes % (Auto) 7.1 % (0.0-7.3); Red Blood Count 4.41 M/mm3 (3.65-5.03); Red Cell Distribution Width 15.3 % (13.2-15.2)
[2018-11-11 08:29] LABS: Platelet Count 88 K/mm3 (140-440)
[2018-11-11 08:48] LABS: BUN/Creatinine Ratio 15; Blood Urea Nitrogen 16 mg/dL (9-20); Calcium 7.2 mg/dL (8.4-10.2); Hemolysis Index 10
--- NOTE | 2018-11-11 10:05 | Gastroenterology Consultation ---
<RAMONITA CARABALLO - Last Filed: 11/11/18 10:26> History of Present Illness - Reason for Consult Consult date: 11/11/18 [facility]IB Requesting physician: GLORIA REED - History of Present Illness Patient is a 68 y/o male with PMH of CAD ([place] 2013-s/p stent; on ASA/prasgurel), HLD, HTN, GERD, and CHF who presented to ED overnight with c/o rectal bleeding with bright red blood with associated lightheadedness to which GI has been consulted. Upon admission, CTA showed extravasation from the ascending colon to which he underwent a coil embolization of distal marginal branches of the ascending branch of the right colic artery by IR. This morning patient was resting in bed w/o acute distress, now HD stable off pressor support with no reports of any further active signs of bleeding this am. Denies fever, CP, SOB, wt loss, abd pain, N/V, hematemesis, melena, diarrhea, or constipation. No known Fhx of GI cancers. Last colonoscopy, according to chart review, was in [address] Lipscomb which showed polypoid mass descending colon, rectal/descending polyp, diverticulosis, and internal hemorrhoids (also underwent EGD at that time that showed gastric ulcer, gastritis, and duodenitis; patient denies any f/u s/p procedures). Past History Past Medical History: acute [place] (2013), CAD, GERD, heart failure, hypertension, hyperlipidemia Past Surgical History: Other (stent x1, ) Social history: , lives with family, smoking (current everday smoker) Family history: no significant family history Medications and Allergies Allergies Allergy/AdvReac Type Severity Reaction Status Date / Time No Known Allergies Allergy Verified 06/19/15 11:33 Home Medications Medication Instructions Recorded Confirmed Last Taken Type Aspirin EC 81 mg PO QDAY 07/31/15 11/11/18 07/29/15 History Effient 10 mg PO DAILY 07/31/15 11/11/18 07/29/15 History Lisinopril [Zestril TAB] 40 mg PO QDAY 07/31/15 11/11/18 07/30/15 History Metoprolol [Lopressor TAB] 25 mg PO BID 07/31/15 11/11/18 07/31/15 History Simvastatin 40 mg PO DAILY 07/31/15 11/11/1807/30/16 History Active Meds: Active Medications Acetaminophen (Tylenol) 650 mg PO Q4H PRN PRN Reason: Pain MILD(1-3)/Fever >100.5/GAYTAN Docusate Sodium (Colace) 100 mg PO BID JACK Norepinephrine (Levophed Drip 4 Mg/Ns 250 Ml) 4 mg in 250 mls @ 7.5 mls/hr IV TITR JACK; Protocol Last Admin: 11/10/18 22:00 Dose: 2 mcg/min, 7.5 mls/hr Documented by: Sodium Chloride (Nacl 0.9% 1000 Ml) 1,000 mls @ 75 mls/hr IV DIRECT JACK Last Admin: 11/11/18 03:36 Dose: 75 mls/hr Documented by: Nicotine (Habitrol) 14 mg TD QDAY JACK Ondansetron HCl (Zofran) 4 mg IV Q6H PRN PRN Reason: Nausea And Vomiting Sodium Chloride (Sodium Chloride Flush Syringe 10 Ml) 10 ml IV BID JACK Sodium Chloride (Sodium Chloride Flush Syringe 10 Ml) 10 ml IV PRN PRN PRN Reason: LINE FLUSH medications reviewed/updated as required Review of Systems - Review of Systems All systems: negative Gastrointestinal: BRBPR, no abdominal pain, no nausea, no vomiting Exam - Constitutional Vital Signs: Temp Pulse Resp BP Pulse Ox 97.5 F L 77 12 134/67 98 11/11/18 06:15 11/11/18 09:00 11/11/18 09:00 11/11/18 09:00 11/11/18 09:00 General appearance: no acute distress - EENT Eyes: PERRL, EOM intact ENT: hearing intact - Respiratory Respiratory effort: normal Respiratory: bilateral: CTA - Cardiovascular Rhythm: regular - Gastrointestinal General gastrointestinal: Present: soft, non-tender, non-distended, normal bowel sounds - Neurologic Neurological: alert and oriented x3 - Labs CBC & Chem 7: 11/11/18 07:24 11/11/18 07:24 Lab Results: Laboratory Results - last 24 hr 11/10/18 11/10/18 11/10/18 18:31 18:31 18:31 WBC 10.1 RBC 4.50 Hgb 12.5 Hct 38.4 MCV 85 MCH 28 MCHC 33 RDW 14.7 Plt Count 171 Lymph % (Auto) 21.9 [place] % (Auto) 7.9 H Eos % (Auto) 0.9 Baso % (Auto) 0.9 Lymph # 2.2 [place] # 0.8 Eos # 0.1 Baso # 0.1 Seg Neutrophils % 68.4 Seg Neutrophils # 6.9 PT 17.8 H INR 1.51 H APTT 20.7 L Sodium 141 Potassium 4.1 Chloride 106.1 Carbon Dioxide 21 L Anion Gap 18 BUN 13 Creatinine 1.2 Estimated GFR > 60 BUN/Creatinine Ratio 11 Glucose 107 H POC Glucose Calcium 8.4 Magnesium 1.60 L Total Bilirubin 0.50 AST 40 ALT 23 Alkaline Phosphatase 70 Total Creatine Kinase 987 H Total Protein 5.9 L Albumin 3.3 L Albumin/Globulin Ratio 1.3 Blood Type Antibody Screen Crossmatch 11/10/18 11/10/18 11/10/18 18:31 20:11 20:38 WBC RBC Hgb 10.2 L Hct 31.5 L D MCV MCH MCHC RDW Plt Count Lymph % (Auto) [place] % (Auto) Eos % (Auto) Baso % (Auto) Lymph # [place] # Eos # Baso # Seg Neutrophils % Seg Neutrophils # PT INR APTT Sodium Potassium Chloride Carbon Dioxide Anion Gap BUN Creatinine Estimated GFR BUN/Creatinine Ratio Glucose POC Glucose 101 Calcium Magnesium Total Bilirubin AST ALT Alkaline Phosphatase Total Creatine Kinase Total Protein Albumin Albumin/Globulin Ratio Blood Type O POSITIVE Antibody Screen Negative Crossmatch See Detail 11/10/18 11/11/18 11/11/18 21:57 07:24 07:24 WBC 12.2 H RBC 4.41 Hgb 6.1 L D 12.7 D Hct 18.9 L* D 38.6 D MCV 88 MCH 29 MCHC 33 RDW 15.3 H Plt Count 88 L Lymph % (Auto) 9.8 L [place] % (Auto) 7.1 Eos % (Auto) 0.1 Baso % (Auto) 0.0 Lymph # 1.2 [place] # 0.9 H Eos # 0.0 Baso # 0.0 Seg Neutrophils % 83.0 H Seg Neutrophils # 10.2 H PT INR APTT Sodium 145 Potassium 4.8 Chloride 113.6 H Carbon Dioxide 19 L Anion Gap 17 BUN 16 Creatinine 1.1 Estimated GFR > 60 BUN/Creatinine Ratio 15 Glucose 111 H POC Glucose Calcium 7.2 L Magnesium Total Bilirubin AST ALT Alkaline Phosphatase Total Creatine Kinase Total Protein Albumin Albumin/Globulin Ratio Blood Type Antibody Screen Crossmatch Assessment and Plan 1.LGIB -H/H 12.7/38.6 s/p blood transfusion (on admission dropped to 6.1/18.9) -continue to monitor H/H and transfuse as needed -no active signs of bleeding this am- currently HD stable -Upon admission, CTA showed extravasation from the ascending colon -s/p coil embolization of distal marginal branches of the ascending branch of the right colic artery by IR -last colonoscopy [address] Lipscomb that showed polypoid mass descending colon, rectal/descending polyp, diverticulosis, and internal hemorrhoids -etiology-most likely diverticular in nature -however given hx of polypoid mass lesion with no f/u, recommend colonoscopy as outpatient upon discharge for further evaluation -okay to start clear liquid diet- if no further bleeding advance to cardiac diet at dinner -continue supportive care -if no further bleeding and labs stable in am, patient okay to be d/c per GI standpoint with f/u in 1-2 weeks in clinic <PRANEETH UPTON - Last Filed: 11/11/18 14:13> Medications and Allergies Active Meds: Active Medications Acetaminophen (Tylenol) 650 mg PO Q4H PRN PRN Reason: Pain MILD(1-3)/Fever >100.5/GAYTAN Docusate Sodium (Colace) 100 mg PO BID [facility] Last Admin: 11/11/18 11:11 Dose: 100 mg Documented by: Nicotine (Habitrol) 14 mg TD QDAY [facility] Last Admin: 11/11/18 11:10 Dose: 14 mg Documented by: Ondansetron HCl (Zofran) 4 mg IV Q6H PRN PRN Reason: Nausea And Vomiting Sodium Chloride (Sodium Chloride Flush Syringe 10 Ml) 10 ml IV BID [facility] Last Admin: 11/11/18 11:11 Dose: 10 ml Documented by: Sodium Chloride (Sodium Chloride Flush Syringe 10 Ml) 10 ml IV PRN PRN PRN Reason: LINE FLUSH Exam - Constitutional Vital Signs: Temp Pulse Resp BP Pulse Ox 97.5 F L 79 18 127/74 98 11/11/18 06:15 11/11/18 12:30 11/11/18 12:30 11/11/18 12:30 11/11/18 12:20 - Labs CBC & Chem 7: 11/11/18 07:24 11/11/18 07:24 Lab Results: Laboratory Results - last 24 hr 11/10/18 11/10/18 11/10/18 18:31 18:31 18:31 WBC 10.1 RBC 4.50 Hgb 12.5 Hct 38.4 MCV 85 MCH 28 MCHC 33 RDW 14.7 Plt Count 171 Lymph % (Auto) 21.9 [place] % (Auto) 7.9 H Eos % (Auto) 0.9 Baso % (Auto) 0.9 Lymph # 2.2 [place] # 0.8 Eos # 0.1 Baso # 0.1 Seg Neutrophils % 68.4 Seg Neutrophils # 6.9 PT 17.8 H INR 1.51 H APTT 20.7 L Sodium 141 Potassium 4.1 Chloride 106.1 Carbon Dioxide 21 L Anion Gap 18 BUN 13 Creatinine 1.2 Estimated GFR > 60 BUN/Creatinine Ratio 11 Glucose 107 H POC Glucose Calcium 8.4 Magnesium 1.60 L Total Bilirubin 0.50 AST 40 ALT 23 Alkaline Phosphatase 70 Total Creatine Kinase 987 H Total Protein 5.9 L Albumin 3.3 L Albumin/Globulin Ratio 1.3 Blood Type Antibody Screen Crossmatch 11/10/18 11/10/18 11/10/18 18:31 20:11 20:38 WBC RBC Hgb 10.2 L Hct 31.5 L D MCV MCH MCHC RDW Plt Count Lymph % (Auto) [place] % (Auto) Eos % (Auto) Baso % (Auto) Lymph # [place] # Eos # Baso # Seg Neutrophils % Seg Neutrophils # PT INR APTT Sodium Potassium Chloride Carbon Dioxide Anion Gap BUN Creatinine Estimated GFR BUN/Creatinine Ratio Glucose POC Glucose 101 Calcium Magnesium Total Bilirubin AST ALT Alkaline Phosphatase Total Creatine Kinase Total Protein Albumin Albumin/Globulin Ratio Blood Type O POSITIVE Antibody Screen Negative Crossmatch See Detail 11/10/18 11/11/18 11/11/18 21:57 07:24 07:24 WBC 12.2 H RBC 4.41 Hgb 6.1 L D 12.7 D Hct 18.9 L* D 38.6 D MCV 88 MCH 29 MCHC 33 RDW 15.3 H Plt Count 88 L Lymph % (Auto) 9.8 L [place] % (Auto) 7.1 Eos % (Auto) 0.1 Baso % (Auto) 0.0 Lymph # 1.2 [place] # 0.9 H Eos # 0.0 Baso # 0.0 Seg Neutrophils % 83.0 H Seg Neutrophils # 10.2 H PT INR APTT Sodium 145 Potassium 4.8 Chloride 113.6 H Carbon Dioxide 19 L Anion Gap 17 BUN 16 Creatinine 1.1 Estimated GFR > 60 BUN/Creatinine Ratio 15 Glucose 111 H POC Glucose Calcium 7.2 L Magnesium Total Bilirubin AST ALT Alkaline Phosphatase Total Creatine Kinase Total Protein Albumin Albumin/Globulin Ratio Blood Type Antibody Screen Crossmatch Assessment and Plan Patient seen and examined. I have reviewed the advanced practitioner's evaluation, assessment, and plan, and agree with them. I note the following additions: spoke with IR, patient is at slightly elevated risk for colonic ischemia, so if develops severe abd pain please eval for colonic ischemia Otherwise will need OPD follow up in 1-2 weeks with colonoscopy to follow to assess lesion seen previously - Patient Problems (1) LGI bleed Current Visit: Yes Status: Acute
--- NOTE | 2018-11-11 10:18 | Progress Note ---
Assessment and Plan Full Consult dictated: GI eval below noted. Discussed case with Dr. Avilez last night. apparent successful embolization of colonic hepatic flexure diverticular bleed. Pt has stabilized post procedure. Off pressors. h/h as below Abd soft, non tender rec - Keep NPO for 24 - 48 hrs as h/h's are monitored. will follow as needed. History of Present Illness - Reason for Consult Consult date: 11/11/18 LGIB Requesting physician: GLORIA REED - History of Present Illness Patient is a 68 y/o male with PMH of CAD ([place] 2013-s/p coronary stent), HLD, HTN, GERD, and CHF who presented to ED overnight with c/o rectal bleeding with bright red blood with associated lightheadedness to which GI has been consulted. Upon admission, he became hypotensive with CTA showing extravasation from the ascending colon to which he underwent coil embolization of distal marginal branches of the ascending branch of the right colic artery by IR. s/p embolization 68-year-old -[place] male who is a current smoker with history of coronary artery disease status post stent 1, HLD, HTN, GERD, [place] (2013), and CHF who presents to [facility] ED with complaints of painless bright red blood per rectum. Pt states that he started experiencing painless bright red blood per rectum earlier today. Shortly as passing the blood felt light headed and describes it as "feeling like he was going to pass out". Pt is currently takes aspirin and prasgurel. He denies use of any other anticoagulation. He states that he's had a colonoscopy in the past but does not recall the date, results, or physician. Denies: n/v/, fever, abdominal pain, rectal pain, recent rectal trauma, or hematuria GI was consulted and requested review of CT scan by vascular which demonstrated extravasation from the ascending colon. Past History Past Medical History: acute [place] (2013), CAD, GERD, heart failure, hypertension, hyperlipidemia Past Surgical History: Other (stent x1, ) Social history: , lives with family, smoking (current everday smoker) Family history: no significant family history This is a 68-year-old gentleman. This patient is not known to this provider previously. The patient presents to the ER today with complaint of painless bright red blood per rectum. This started earlier on today. It was accompanied by a sensation of almost passing out. This is now resolved. Patient takes as pirin and prasgurel - Past Medical History Previous Medical History?: Yes Hx Hypertension: Yes Hx Heart Attack/AMI: Yes (2013) Hx Congestive Heart Failure: Yes Hx GERD: Yes Additional medical history: CAD. HIGH CHOLESTEROL - Surgical History Past Surgical History?: Yes Hx Coronary Stent: Yes (X1) - Social History Smoking Status: Current Every Day Smoker Substance Use Type: None CT angiogram shows active extravasation. Were discussed with gastroenterology, Dr. Moise, who has graciously involve the services of our interventional radiologist, Dr. Raghav Avilez is coming in as we speak to take the patient to the catheterization lab, for endovascular intervention. Hospital medicine team is updated, patient is up triaged to the ICU. At interventional radiology's request, we have discussed the case with our general surgeon on-call, Dr. Luis Hi, indicates he is available for emergent consultation and right hemicolectomy, if hemostasis could not be obtained otherwise. Past History Past Medical History: acute [place] (2013), CAD, GERD, heart failure, hypertension, hyperlipidemia Past Surgical History: Other (stent x1, ) Social history: , lives with family, smoking (current everday smoker) Family history: no significant family history Selected Entries 11/11/18 11/11/18 02:01 09:00 Pulse Rate 77 Blood Pressure 86/53 134/67 Laboratory Tests 11/10/18 11/11/18 20:38 07:24 Hgb 10.2 L 12.7 D Hct 31.5 L D 38.6 D Objective Vital Signs - 12hr 11/10/18 11/10/18 11/10/18 22:20 22:28 22:32 Temperature 99.0 F Pulse Rate 73 77 Respiratory 15 14 Rate Blood Pressure Blood Pressure 117/58 128/67 [Right] O2 Sat by Pulse 97 98 Oximetry 11/11/18 11/11/18 11/11/18 01:10 01:40 02:01 Temperature 98.3 F Pulse Rate 79 80 Respiratory 16 Rate Blood Pressure 86/53 Blood Pressure [Right] O2 Sat by Pulse 98 98 Oximetry 11/11/18 11/11/18 11/11/18 02:13 02:35 02:46 Temperature 98 F 98.2 F 98.3 F Pulse Rate 78 78 75 Respiratory 19 16 15 Rate Blood Pressure 85/58 98/55 114/62 Blood Pressure [Right] O2 Sat by Pulse 97 98 Oximetry 11/11/18 11/11/18 11/11/18 03:15 03:45 04:00 Temperature 98.1 F 98.3 F Pulse Rate 75 73 Respiratory 18 15 Rate Blood Pressure 99/58 110/57 Blood Pressure [Right] O2 Sat by Pulse 99 98 Oximetry 11/11/18 11/11/18 11/11/18 04:13 04:30 04:45 Temperature 98.5 F 98.3 F 98 F Pulse Rate 74 73 71 Respiratory 15 15 14 Rate Blood Pressure 125/67 129/67 127/69 Blood Pressure [Right] O2 Sat by Pulse 98 99 98 Oximetry 11/11/18 11/11/18 11/11/18 04:50 05:00 05:10 Temperature Pulse Rate 67 75 74 Respiratory 13 13 14 Rate Blood Pressure 129/67 134/70 134/70 Blood Pressure [Right] O2 Sat by Pulse 99 99 98 Oximetry 11/11/18 11/11/18 11/11/18 05:15 05:20 05:30 Temperature 98.2 F Pulse Rate 75 74 74 Respiratory 17 14 14 Rate Blood Pressure 125/68 127/69 125/68 Blood Pressure [Right] O2 Sat by Pulse 99 98 98 Oximetry 11/11/18 11/11/18 11/11/18 05:40 05:45 05:50 Temperature 97.6 F Pulse Rate 78 77 72 Respiratory 15 14 Rate Blood Pressure 125/68 127/68 127/68 Blood Pressure [Right] O2 Sat by Pulse 98 99 98 Oximetry 11/11/18 11/11/18 11/11/18 06:00 06:10 06:15 Temperature 97.5 F L Pulse Rate 74 78 79 Respiratory 15 13 14 Rate Blood Pressure 127/68 127/68 117/66 Blood Pressure [Right] O2 Sat by Pulse 98 99 99 Oximetry 11/11/18 11/11/18 11/11/18 06:20 06:30 06:40 Temperature Pulse Rate 78 75 75 Respiratory 13 18 15 Rate Blood Pressure 117/66 118/67 108/72 Blood Pressure [Right] O2 Sat by Pulse 99 99 98 Oximetry 11/11/18 11/11/18 11/11/18 06:50 07:00 07:10 Temperature Pulse Rate 73 74 77 Respiratory 15 16 17 Rate Blood Pressure 108/72 108/72 126/64 Blood Pressure [Right] O2 Sat by Pulse 98 98 98 Oximetry 11/11/18 11/11/18 11/11/18 07:20 07:30 07:40 Temperature Pulse Rate 76 81 80 Respiratory 15 16 11 L Rate Blood Pressure 126/64 131/67 131/67 Blood Pressure [Right] O2 Sat by Pulse 99 99 98 Oximetry 11/11/18 11/11/18 11/11/18 07:50 08:00 08:10 Temperature Pulse Rate 86 Respiratory 13 Rate Blood Pressure 131/67 133/71 133/71 Blood Pressure [Right] O2 Sat by Pulse 99 99 99 Oximetry 11/11/18 11/11/18 11/11/18 08:20 08:30 08:40 Temperature Pulse Rate 83 79 78 Respiratory 16 16 15 Rate Blood Pressure 133/71 142/69 133/71 Blood Pressure [Right] O2 Sat by Pulse 98 98 98 Oximetry 11/11/18 11/11/18 08:50 09:00 Temperature Pulse Rate 79 77 Respiratory 15 12 Rate Blood Pressure 133/71 134/67 Blood Pressure [Right] O2 Sat by Pulse 98 98 Oximetry - Labs 11/11/18 07:24 11/11/18 07:24 Diabetes panel 11/10/18 11/11/18 Range/Units 18:31 07:24 Sodium 141 145 (137-145) mmol/L Potassium 4.1 4.8 (3.6-5.0) mmol/L Chloride 106.1 113.6 H (98-107) mmol/L Carbon Dioxide 21 L 19 L (22-30) mmol/L BUN 13 16 (9-20) mg/dL Creatinine 1.2 1.1 (0.8-1.5) mg/dL Glucose 107 H 111 H (75-100) mg/dL Calcium 8.4 7.2 L (8.4-10.2) mg/dL AST 40 (5-40) units/L ALT 23 (7-56) units/L Alkaline Phosphatase 70 (35-129) units/L Total Protein 5.9 L (6.3-8.2) g/dL Albumin 3.3 L (3.9-5) g/dL Calcium panel 11/10/18 11/11/18 Range/Units 18:31 07:24 Calcium 8.4 7.2 L (8.4-10.2) mg/dL Albumin 3.3 L (3.9-5) g/dL Pituitary panel 11/10/18 11/11/18 Range/Units 18:31 07:24 Sodium 141 145 (137-145) mmol/L Potassium 4.1 4.8 (3.6-5.0) mmol/L Chloride 106.1 113.6 H (98-107) mmol/L Carbon Dioxide 21 L 19 L (22-30) mmol/L BUN 13 16 (9-20) mg/dL Creatinine 1.2 1.1 (0.8-1.5) mg/dL Glucose 107 H 111 H (75-100) mg/dL Calcium 8.4 7.2 L (8.4-10.2) mg/dL Adrenal panel 11/10/18 11/11/18 Range/Units 18:31 07:24 Sodium 141 145 (137-145) mmol/L Potassium 4.1 4.8 (3.6-5.0) mmol/L Chloride 106.1 113.6 H (98-107) mmol/L Carbon Dioxide 21 L 19 L (22-30) mmol/L BUN 13 16 (9-20) mg/dL Creatinine 1.2 1.1 (0.8-1.5) mg/dL Glucose 107 H 111 H (75-100) mg/dL Calcium 8.4 7.2 L (8.4-10.2) mg/dL Total Bilirubin 0.50 (0.1-1.2) mg/dL AST 40 (5-40) units/L ALT 23 (7-56) units/L Alkaline Phosphatase 70 (35-129) units/L Total Protein 5.9 L (6.3-8.2) g/dL Albumin 3.3 L (3.9-5) g/dL
--- NOTE | 2018-11-11 10:27 | Progress Note ---
Assessment and Plan Assessment and plan: 68-year-old -[place] male who is a current smoker with history of coronary artery disease status post stent 1, HLD, HTN, GERD, [place] (2013), and CHF who presents to [facility] ED with complaints of painless bright red blood per rectum. Pt states that he started experiencing painless bright red blood per rectum earlier today. On presentation pt was normotensive with hgb within normal limits. He was alert and oriented x3, and able to maintain conversation. Around 8pm while coming back from restroom via wheelchair pt had vagal event and briefly lost consciousness. Approximately 30 minutes later he had large bright red blood bowel movement. He became hypotensive, with SBP in the 70's. He received fluid resuscitation, and was transfued. A central line was placed and he was started on levophed gtt to maintain MAP of 65. CT angiogram shows active extravasation GI and IR evaluated the patient status post embolization. No new Episodes of bleeding, received 2 units PRBC --Lower GI Bleed s/p embolization per IR -G I following No new Episodes of bleeding --Hemorrhagic shock acute blood loss -s/p 2 units PRBC transfusion, Hb 12.7 Monitor H&H and transfuse as needed --Hypotension/hemorrhagic shock On Levophed, today patient's blood pressures are reasonable Closely monitor, off LEVOPHED --History of CAD status post PCI; Management per cardiology --Ongoing Tobacco abuse Smoking cessation, nicotine patch as needed DVT prophylaxis; SCD No pharmacologic anticoagulation due to GI bleeding --CODE STATUS Monitor closely and adjust management as needed Consults and Recommendations noted and appreciated Patient is stable to be transferred out of ICU to telemetry if OK with GI Critical care time 35 minutes History Interval history: Sincerely and examined in ICU this morning medical records reviewed Patient was admitted to the first GI bleeding, status post embolization Patient feels slightly better, 2 units of PRBC transfusion Alert awake oriented Vital signs noted Hospitalist Physical - Constitutional Vitals: Temp Pulse Resp BP Pulse Ox 97.5 F L 77 12 134/67 98 11/11/18 06:15 11/11/18 09:00 11/11/18 09:00 11/11/18 09:00 11/11/18 09:00 General appearance: Present: no acute distress, well-nourished - EENT Eyes: Present: PERRL, EOM intact - Neck Neck: Present: supple, normal ROM - Respiratory Respiratory effort: normal Respiratory: bilateral: diminished, negative: rales, rhonchi, wheezing - Cardiovascular Rhythm: regular Heart Sounds: Present: S1 & S2 - Extremities Extremities: no ischemia, No edema - Abdominal General gastrointestinal: soft, non-tender, non-distended, normal bowel sounds - Integumentary Integumentary: Present: clear, warm - Psychiatric Psychiatric: appropriate mood/affect, cooperative - Neurologic Neurologic: moves all extremities Results - Labs CBC & Chem 7: 11/11/18 07:24 11/11/18 07:24 Labs: Laboratory Last Values WBC 12.2 K/mm3 (4.5-11.0) H 11/11/18 07:24 RBC 4.41 M/mm3 (3.65-5.03) 11/11/18 07:24 Hgb 12.7 gm/dl (11.8-15.2) D 11/11/18 07:24 Hct 38.6 % (35.5-45.6) D 11/11/18 07:24 MCV 88 fl (84-94) 11/11/18 07:24 MCH 29 pg (28-32) 11/11/18 07:24 MCHC 33 % (32-34) 11/11/18 07:24 RDW 15.3 % (13.2-15.2) H 11/11/18 07:24 Plt Count 88 K/mm3 (140-440) L 11/11/18 07:24 Lymph % (Auto) 9.8 % (13.4-35.0) L 11/11/18 07:24 [place] % (Auto) 7.1 % (0.0-7.3) 11/11/18 07:24 Eos % (Auto) 0.1 % (0.0-4.3) 11/11/18 07:24 Baso % (Auto) 0.0 % (0.0-1.8) 11/11/18 07:24 Lymph # 1.2 K/mm3 (1.2-5.4) 11/11/18 07:24 [place] # 0.9 K/mm3 (0.0-0.8) H 11/11/18 07:24 Eos # 0.0 K/mm3 (0.0-0.4) 11/11/18 07:24 Baso # 0.0 K/mm3 (0.0-0.1) 11/11/18 07:24 Seg Neutrophils % 83.0 % (40.0-70.0) H 11/11/18 07:24 Seg Neutrophils # 10.2 K/mm3 (1.8-7.7) H 11/11/18 07:24 PT 17.8 Sec. (12.2-14.9) H 11/10/18 18:31 INR 1.51 (0.87-1.13) H 11/10/18 18:31 APTT 20.7 Sec. (24.2-36.6) L 11/10/18 18:31 Sodium 145 mmol/L (137-145) 11/11/18 07:24 Potassium 4.8 mmol/L (3.6-5.0) 11/11/18 07:24 Chloride 113.6 mmol/L (98-107) H 11/11/18 07:24 Carbon Dioxide 19 mmol/L (22-30) L 11/11/18 07:24 17 mmol/L 11/11/18 07:24 BUN 16 mg/dL (9-20) 11/11/18 07:24 1.1 mg/dL (0.8-1.5) 11/11/18 07:24 Estimated GFR > 60 ml/min 11/11/18 07:24 15 % 11/11/18 07:24 Glucose 111 mg/dL (75-100) H 11/11/18 07:24 POC Glucose 101 (70-105) 11/10/18 20:11 Calcium 7.2 mg/dL (8.4-10.2) L 11/11/18 07:24 Magnesium 1.60 mg/dL (1.7-2.3) L 11/10/18 18:31 0.50 mg/dL (0.1-1.2) 11/10/18 18:31 AST 40 units/L (5-40) 11/10/18 18:31 ALT 23 units/L (7-56) 11/10/18 18:31 70 units/L (35-129) 11/10/18 18:31 987 units/L (55-170) H 11/10/18 18:31 5.9 g/dL (6.3-8.2) L 11/10/18 18:31 3.3 g/dL (3.9-5) L 11/10/18 18:31 1.3 % 11/10/18 18:31 Blood Type O POSITIVE 11/10/18 18:31 Antibody Screen Negative 11/10/18 18:31 Crossmatch See Detail 11/10/18 18:31 Active Medications - Current Medications Current Medications: Generic Name Dose Route Start Last Admin Trade Name Freq PRN Reason Stop Dose Admin Acetaminophen 650 mg 11/10/18 20:30 Tylenol PO Q4H PRN Pain MILD(1-3)/Fever >100.5/GAYTAN Docusate Sodium 100 mg 11/10/18 22:00 Colace PO BID JACK Norepinephrine 4 mg in 250 mls @ 7.5 mls/hr 11/10/18 22:00 11/10/18 22:00 Levophed Drip 4 Mg/Ns 250 Ml IV 2 mcg/min TITR JACK 7.5 mls/hr Administration Protocol 2 MCG/MIN Sodium Chloride 1,000 mls @ 75 mls/hr 11/11/18 03:00 11/11/18 03:36 Nacl 0.9% 1000 Ml IV 75 mls/hr DIRECT JACK Administration Nicotine 14 mg 11/11/18 10:00 Habitrol TD QDAY JACK Ondansetron HCl 4 mg 11/10/18 20:30 Zofran IV Q6H PRN Nausea And Vomiting Sodium Chloride 10 ml 11/10/18 22:00 Sodium Chloride Flush Syringe 10 Ml IV BID JACK Sodium Chloride 10 ml 11/10/18 20:30 Sodium Chloride Flush Syringe 10 Ml IV PRN PRN LINE FLUSH
--- NOTE | 2018-11-11 11:03 | Consultation ---
History of Present Illness Consult date: 11/11/18 Consult reason: pre op evaluation History of present illness: 68-year old male who presented with complaints of bright red blood per rectum and near syncope, admitted with hemorrhagic shock and lower GI bleed. Labs showed a H&H of 6.1/18.9. Patient was taken urgently from the emergency department and underwent a coil embolization of distal marginal branches of the ascending branch of the right colic artery. During the procedure he developed a large left neck hematoma around the catheter which was expressed. Patient has a history of coronary artery disease status post PCI in 2013 but has been lost to outpatient cardiac follow up. Patient also continues to smoke. Home medication list he takes aspirin and prasgurel on a daily basis which has since been discontinued. Patient denies chest pain, unusual shortness of breath and palpitations. There was no syncope. His presenting ECG is benign, normal sinus rhythm. Past History Past Medical History: acute [place] (2013), CAD, GERD, hypertension, hyperlipidemia Social history: , lives with family, smoking (current everday smoker) Family history: no significant family history Medications and Allergies Allergies Allergy/AdvReac Type Severity Reaction Status Date / Time No Known Allergies Allergy Verified 06/19/15 11:33 Home Medications Medication Instructions Recorded Confirmed Last Taken Type Aspirin EC 81 mg PO QDAY 07/31/15 11/11/18 07/29/15 History Effient 10 mg PO DAILY 07/31/15 11/11/18 07/29/15 History Lisinopril [Zestril TAB] 40 mg PO QDAY 07/31/15 11/11/18 07/30/15 History Metoprolol [Lopressor TAB] 25 mg PO BID 07/31/15 11/11/18 07/31/15 History Simvastatin 40 mg PO DAILY 07/31/15 11/11/18 07/31/15 History Active Meds: Active Medications Acetaminophen (Tylenol) 650 mg PO Q4H PRN PRN Reason: Pain MILD(1-3)/Fever >100.5/GAYTAN Docusate Sodium (Colace) 100 mg PO BID JACK Nicotine (Habitrol) 14 mg TD QDAY JACK Ondansetron HCl (Zofran) 4 mg IV Q6H PRN PRN Reason: Nausea And Vomiting Sodium Chloride (Sodium Chloride Flush Syringe 10 Ml) 10 ml IV BID JACK Sodium Chloride (Sodium Chloride Flush Syringe 10 Ml) 10 ml IV PRN PRN PRN Reason: LINE FLUSH Physical Examination Vital Signs Temp Pulse Resp BP Pulse Ox 98.4 F 71 16 145/69 97 11/10/18 18:03 11/10/18 18:03 11/10/18 18:03 11/10/18 18:03 11/10/18 18:03 General appearance: no acute distress HEENT: Positive: PERRL Neck: Positive: trachea midline Cardiac: Positive: Reg Rate and Rhythm Lungs: Positive: Normal Breath Sounds Neuro: Positive: Grossly Intact Results 11/11/18 07:24 11/11/18 07:24 Cardiac Enzymes 11/10/18 Range/Units 18:31 AST 40 (5-40) units/L Coagulation 11/10/18 Range/Units 18:31 PT 17.8 H (12.2-14.9) Sec. INR 1.51 H (0.87-1.13) APTT 20.7 L (24.2-36.6) Sec. CBC 11/10/18 11/10/18 11/10/18 Range/Units 18:31 20:38 21:57 WBC 10.1 (4.5-11.0) K/mm3 RBC 4.50 (3.65-5.03) M/mm3 Hgb 12.5 10.2 L 6.1 L D (11.8-15.2) gm/dl Hct 38.4 31.5 L D 18.9 L* D (35.5-45.6) % Plt Count 171 (140-440) K/mm3 Lymph # 2.2 (1.2-5.4) K/mm3 [place] # 0.8 (0.0-0.8) K/mm3 Eos # 0.1 (0.0-0.4) K/mm3 Baso # 0.1 (0.0-0.1) K/mm3 11/11/18 Range/Units 07:24 WBC 12.2 H (4.5-11.0) K/mm3 RBC 4.41 (3.65-5.03) M/mm3 Hgb 12.7 D (11.8-15.2) gm/dl Hct 38.6 D (35.5-45.6) % Plt Count 88 L (140-440) K/mm3 Lymph # 1.2 (1.2-5.4) K/mm3 [place] # 0.9 H (0.0-0.8) K/mm3 Eos # 0.0 (0.0-0.4) K/mm3 Baso # 0.0 (0.0-0.1) K/mm3 Comprehensive Metabolic Panel 11/10/18 11/11/18 Range/Units 18:31 07:24 Sodium 141 145 (137-145) mmol/L Potassium 4.1 4.8 (3.6-5.0) mmol/L Chloride 106.1 113.6 H (98-107) mmol/L Carbon Dioxide 21 L 19 L (22-30) mmol/L BUN 13 16 (9-20) mg/dL Creatinine 1.2 1.1 (0.8-1.5) mg/dL Glucose 107 H 111 H (75-100) mg/dL Calcium 8.4 7.2 L (8.4-10.2) mg/dL AST 40 (5-40) units/L ALT 23 (7-56) units/L Alkaline Phosphatase 70 (35-129) units/L Total Protein 5.9 L (6.3-8.2) g/dL Albumin 3.3 L (3.9-5) g/dL Assessment and Plan - Patient Problems (1) Hemorrhagic shock Current Visit: Yes Status: Acute (2) LGI bleed Current Visit: Yes Status: Acute (3) CAD (coronary artery disease) Current Visit: No Status: Acute
[2018-11-11] MEDS: NICOTINE 14 MG/24 HR PATCH TD SCH (11:10)
[2018-11-11] MEDS: DOCUSATE SODIUM 100 MG CAP PO SCH ×2 (11:11→21:24)
--- NOTE | 2018-11-11 11:34 | Consultation ---
History of Present Illness - Reason for Consult Consult date: 11/11/18 GI bleed Requesting physician: FARA KENNY - History of Present Illness 68 y/o male admitted last night with GI bleed. IR took to qc lab technician and embolized right colic artery per their notes. Patient previously had been hypotensive and on pressors. Post procedure normotensive and off pressors. Brought to ICU for monitoring. Surgery was also consulted and their note has been reviewed. Patient was given a total of 6 units of blood and responded appropriately to transfusion based on H/H this morning. Remainder is negative. Past History Past Medical History: acute [place] (2013), CAD, GERD, hypertension, hyperlipidemia Past Surgical History: Other (stent x1, ) Social history: , lives with family, smoking (current everday smoker) Family history: no significant family history Medications and Allergies Allergies Allergy/AdvReac Type Severity Reaction Status Date / Time No Known Allergies Allergy Verified 06/19/15 11:33 Home Medications Medication Instructions Recorded Confirmed Last Taken Type Aspirin EC 81 mg PO QDAY 07/31/15 11/11/18 07/29/15 History Effient 10 mg PO DAILY 07/31/15 11/11/18 07/29/15 History Lisinopril [Zestril TAB] 40 mg PO QDAY 07/31/15 11/11/18 07/30/15 History Metoprolol [Lopressor TAB] 25 mg PO BID 07/31/15 11/11/18 07/31/15 History Simvastatin 40 mg PO DAILY 07/31/15 11/11/18 07/31/15 History Active Meds: Active Medications Acetaminophen (Tylenol) 650 mg PO Q4H PRN PRN Reason: Pain MILD(1-3)/Fever >100.5/GAYTAN Docusate Sodium (Colace) 100 mg PO BID [facility] Last Admin: 11/11/18 11:11 Dose: 100 mg Documented by: Nicotine (Habitrol) 14 mg TD QDAY [facility] Last Admin: 11/11/18 11:10 Dose: 14 mg Documented by: Ondansetron HCl (Zofran) 4 mg IV Q6H PRN PRN Reason: Nausea And Vomiting Sodium Chloride (Sodium Chloride Flush Syringe 10 Ml) 10 ml IV BID [facility] Last Admin: 11/11/18 11:11 Dose: 10 ml Documented by: Sodium Chloride (Sodium Chloride Flush Syringe 10 Ml) 10 ml IV PRN PRN PRN Reason: LINE FLUSH Review of Systems All systems: negative Exam - Constitutional Vitals: Temp Pulse Resp BP Pulse Ox 97.5 F L 86 12 130/76 99 11/11/18 06:15 11/11/18 10:30 11/11/18 10:30 11/11/18 10:30 11/11/18 10:30 Results - Labs CBC & Chem 7: 11/11/18 07:24 11/11/18 07:24 Labs: Abnormal lab results 11/10/18 11/10/18 11/10/18 Range/Units 18:31 18:31 18:31 WBC (4.5-11.0) K/mm3 Hgb (11.8-15.2) gm/dl Hct (35.5-45.6) % RDW (13.2-15.2) % Plt Count (140-440) K/mm3 Lymph % (Auto) (13.4-35.0) % [place] % (Auto) 7.9 H (0.0-7.3) % [place] # (0.0-0.8) K/mm3 Seg Neutrophils % (40.0-70.0) % Seg Neutrophils # (1.8-7.7) K/mm3 PT 17.8 H (12.2-14.9) Sec. INR 1.51 H (0.87-1.13) APTT 20.7 L (24.2-36.6) Sec. Chloride (98-107) mmol/L Carbon Dioxide 21 L (22-30) mmol/L Glucose 107 H (75-100) mg/dL Calcium (8.4-10.2) mg/dL Magnesium 1.60 L (1.7-2.3) mg/dL Total Creatine Kinase 987 H (55-170) units/L Total Protein 5.9 L (6.3-8.2) g/dL Albumin 3.3 L (3.9-5) g/dL Crossmatch 11/10/18 11/10/18 11/10/18 Range/Units 18:31 20:38 21:57 WBC (4.5-11.0) K/mm3 Hgb 10.2 L 6.1 L D (11.8-15.2) gm/dl Hct 31.5 L D 18.9 L* D (35.5-45.6) % RDW (13.2-15.2) % Plt Count (140-440) K/mm3 Lymph % (Auto) (13.4-35.0) % [place] % (Auto) (0.0-7.3) % [place] # (0.0-0.8) K/mm3 Seg Neutrophils % (40.0-70.0) % Seg Neutrophils # (1.8-7.7) K/mm3 PT (12.2-14.9) Sec. INR (0.87-1.13) APTT (24.2-36.6) Sec. Chloride (98-107) mmol/L Carbon Dioxide (22-30) mmol/L Glucose (75-100) mg/dL Calcium (8.4-10.2) mg/dL Magnesium (1.7-2.3) mg/dL Total Creatine Kinase (55-170) units/L Total Protein (6.3-8.2) g/dL Albumin (3.9-5) g/dL Crossmatch See Detail 11/11/18 11/11/18 Range/Units 07:24 07:24 WBC 12.2 H (4.5-11.0) K/mm3 Hgb (11.8-15.2) gm/dl Hct (35.5-45.6) % RDW 15.3 H (13.2-15.2) % Plt Count 88 L (140-440) K/mm3 Lymph % (Auto) 9.8 L (13.4-35.0) % [place] % (Auto) (0.0-7.3) % [place] # 0.9 H (0.0-0.8) K/mm3 Seg Neutrophils % 83.0 H (40.0-70.0) % Seg Neutrophils # 10.2 H (1.8-7.7) K/mm3 PT (12.2-14.9) Sec. INR (0.87-1.13) APTT (24.2-36.6) Sec. Chloride 113.6 H (98-107) mmol/L Carbon Dioxide 19 L (22-30) mmol/L Glucose 111 H (75-100) mg/dL Calcium 7.2 L (8.4-10.2) mg/dL Magnesium (1.7-2.3) mg/dL Total Creatine Kinase (55-170) units/L Total Protein (6.3-8.2) g/dL Albumin (3.9-5) g/dL Crossmatch - Imaging and Cardiology Chest x-ray: image reviewed (clear CXR) Assessment and Plan 68 y/o male with colonic bleed s/p embolization with hematoma from IJ placement and now right groin TLC 1. H/H appears stable, especially with good response in numbers and lack of need for pressors immediately. Would check daily unless patient has a bright red bowel movement. Will check a repeat H/H at 1800, if that is good can go to daily from there 2. Asked nursing to obtain more peripheral IV's if possible 3. Per nursing, vascular ask that femoral line not be removed. Unsure why. Will keep and discuss with them at a later time
--- NOTE | 2018-11-11 20:29 | Consultation ---
REASON FOR CONSULTATION: Lower GI bleed. HISTORY OF PRESENT ILLNESS: The patient is a 68-year-old gentleman who presented to the Emergency Room with gross hematochezia. The patient denied any abdominal pain and had never experienced similar symptoms in the past. PAST MEDICAL HISTORY: Pertinent for acute NH as well as coronary artery disease, GERD, heart failure, hypertension, and hyperlipidemia. PAST SURGICAL HISTORY: He is status post stent placement. The patient's case was discussed with Dr. Avilez throughout the night. The patient arrived hypotensive and on pressors. I think blood pressure was down to as low as 85/58 on arrival. The patient was resuscitated and started on pressors. Dr. Avilez proceeded to successfully embolize the arterial bleeder in the area of the hepatic flexure of the colon. It appeared to be a diverticular bleed. Apparently, the embolization has proven to be successful. The patient currently is off pressors with a stable blood pressure of 134/67. H and H posttransfusion is now 12.7 and 38.6. On admission, H and H was 6.1 and 18.9. The patient currently is awake, alert, and comfortable, in no acute distress. His abdomen is soft and nontender. In speaking with the nurses, it appears that there are really no signs of any active lower GI bleeding since the procedure. IMPRESSION: At this time is successful embolization by Dr. Avilez of arterial diverticular bleed in the area of the hepatic flexure of the colon. The patient is currently surgically stable. RECOMMENDATIONS: We would recommend to keep the patient n.p.o. for the next 24-48 hours while we monitor his H and H. GI is also on consultation. Other note has been noted. I will follow with you as needed. JOB# [id number] MARKO/NTS
[2018-11-11 21:02] LABS: Hematocrit 33.8 % (35.5-45.6); Hemoglobin 11.2 gm/dl (11.8-15.2); Mean Corpuscular HGB Conc 33 % (32-34); Mean Corpuscular Volume 87 fl (84-94); Red Blood Count 3.88 M/mm3 (3.65-5.03)
[2018-11-11 21:07] LABS: Platelet Count 88 K/mm3 (140-440)
[2018-11-11] MEDS: PANTOPRAZOLE 40 MG INJ IV SCH (23:37)
[2018-11-12 05:31] LABS: Basophils % (Auto) 0.3 % (0.0-1.8); Eosinophils # (Auto) 0.3 K/mm3 (0.0-0.4); Eosinophils % (Auto) 2.7 % (0.0-4.3); Hematocrit 29.9 % (35.5-45.6); Hemoglobin 9.9 gm/dl (11.8-15.2); Lymphocytes # (Auto) 2.1 K/mm3 (1.2-5.4); Lymphocytes % (Auto) 23.1 % (13.4-35.0); Mean Corpuscular HGB Conc 33 % (32-34); Mean Corpuscular Volume 87 fl (84-94); Monocytes # (Auto) 0.9 K/mm3 (0.0-0.8); Monocytes % (Auto) 10.3 % (0.0-7.3); Red Blood Count 3.43 M/mm3 (3.65-5.03); Red Cell Distribution Width 14.7 % (13.2-15.2)
[2018-11-12 05:34] LABS: Platelet Count 82 K/mm3 (140-440)
[2018-11-12 05:43] LABS: Alanine Aminotransferase 13 units/L (7-56); Albumin 2.3 g/dL (3.9-5); BUN/Creatinine Ratio 18; Blood Urea Nitrogen 21 mg/dL (9-20); Calcium 7.4 mg/dL (8.4-10.2); Hemolysis Index 3
--- NOTE | 2018-11-12 07:09 | Progress Note ---
Subjective Date of service: 11/11/18 Interval history: s/p Endovascular Embolization for GI bleed patient doing well currently HDS not requiring any pressors patient denies any abdominal pain pressure dressing removed from left IJ CVL, no bleeding noted and hematoma resolving ok to pull both CVLs Objective - Constitutional Vitals: Vital Signs - 12hr 11/11/18 11/12/18 19:35 02:43 Temperature 97.6 F 98.5 F Pulse Rate 93 H 81 Respiratory 18 18 Rate Blood Pressure 144/75 121/51 O2 Sat by Pulse 99 97 Oximetry - Labs CBC & Chem 7: 11/12/18 04:35 11/12/18 04:35 Labs: Abnormal lab results 11/10/18 11/11/18 11/11/18 Range/Units 18:31 07:24 07:24 WBC 12.2 H (4.5-11.0) K/mm3 RBC (3.65-5.03) M/mm3 Hgb (11.8-15.2) gm/dl Hct (35.5-45.6) % RDW 15.3 H (13.2-15.2) % Plt Count 88 L (140-440) K/mm3 Lymph % (Auto) 9.8 L (13.4-35.0) % [place] % (Auto) (0.0-7.3) % [place] # 0.9 H (0.0-0.8) K/mm3 Seg Neutrophils % 83.0 H (40.0-70.0) % Seg Neutrophils # 10.2 H (1.8-7.7) K/mm3 Chloride 113.6 H (98-107) mmol/L Carbon Dioxide 19 L (22-30) mmol/L BUN (9-20) mg/dL Glucose 111 H (75-100) mg/dL Calcium 7.2 L (8.4-10.2) mg/dL Total Protein (6.3-8.2) g/dL Albumin (3.9-5) g/dL Crossmatch See Detail 11/11/18 11/12/18 11/12/18 Range/Units 20:29 04:35 04:35 WBC 11.5 H (4.5-11.0) K/mm3 RBC 3.43 L (3.65-5.03) M/mm3 Hgb 11.2 L 9.9 L (11.8-15.2) gm/dl Hct 33.8 L 29.9 L (35.5-45.6) % RDW (13.2-15.2) % Plt Count 88 L 82 L (140-440) K/mm3 Lymph % (Auto) (13.4-35.0) % [place] % (Auto) 10.3 H (0.0-7.3) % [place] # 0.9 H (0.0-0.8) K/mm3 Seg Neutrophils % (40.0-70.0) % Seg Neutrophils # (1.8-7.7) K/mm3 Chloride 109.8 H (98-107) mmol/L Carbon Dioxide (22-30) mmol/L BUN 21 H (9-20) mg/dL Glucose (75-100) mg/dL Calcium 7.4 L (8.4-10.2) mg/dL Total Protein 4.0 L D (6.3-8.2) g/dL Albumin 2.3 L (3.9-5) g/dL Crossmatch Medications & Allergies - Medications Allergies/Adverse Reactions: Allergies No Known Allergies Allergy (Verified 06/19/15 11:33) Home Medications: Home Medications Medication Instructions Recorded Confirmed Last Taken Type Aspirin EC 81 mg PO QDAY 07/31/15 11/11/18 07/29/15 History Effient 10 mg PO DAILY 07/31/15 11/11/18 07/29/15 History Lisinopril [Zestril TAB] 40 mg PO QDAY 07/31/15 11/11/18 07/30/15 History Metoprolol [Lopressor TAB] 25 mg PO BID 07/31/15 11/11/18 07/31/15 History Simvastatin 40 mg PO DAILY 07/31/15 11/11/18 07/31/15 History Active Medications: Generic Name Dose Route Start Last Admin Trade Name Freq PRN Reason Stop Dose Admin Acetaminophen 650 mg 11/10/18 20:30 Tylenol PO Q4H PRN Pain MILD(1-3)/Fever >100.5/GAYTAN Docusate Sodium 100 mg 11/10/18 22:00 11/11/18 21:24 Colace PO Not Given BID JACK Nicotine 14 mg 11/11/18 10:00 11/11/18 11:10 Habitrol TD 14 mg QDAY JACK Administration Ondansetron HCl 4 mg 11/10/18 20:30 Zofran IV Q6H PRN Nausea And Vomiting Pantoprazole Sodium 40 mg 11/11/18 23:00 11/11/18 23:37 Protonix IV 40 mg BID JACK Administration Sodium Chloride 10 ml 11/10/18 22:00 11/11/18 22:25 Sodium Chloride Flush Syringe 10 Ml IV 10 ml BID JACK Administration Sodium Chloride 10 ml 11/10/18 20:30 Sodium Chloride Flush Syringe 10 Ml IV PRN PRN LINE FLUSH
[2018-11-12] MEDS: NICOTINE 14 MG/24 HR PATCH TD SCH (09:37)
[2018-11-12] MEDS: DOCUSATE SODIUM 100 MG CAP PO SCH ×2 (09:38→21:27)
[2018-11-12] MEDS: PANTOPRAZOLE 40 MG INJ IV SCH ×2 (09:38→21:08)
--- NOTE | 2018-11-12 11:45 | Progress Note ---
Assessment and Plan - Patient Problems (1) CAD (coronary artery disease) Current Visit: No Status: Acute Plan to address problem: Patient has a history of coronary artery disease, status post coronary stenting in 2013. He was maintained on aspirin and Effient onto his current presentation with GI bleed and severe anemia. He has completed more than 2 years of dual oral antiplatelet therapy, and therefore does not need further Effient therapy. We will defer to gastroenterology regarding timing of resumption of sole antiplatelet therapy with aspirin 81 mg. Continue other guidelines directed medical therapy as tolerated for his underlying coronary artery disease. Subjective Date of service: 11/12/18 Interval history: Patient is comfortable, no cardiac complaints. Objective Vital Signs Temp Pulse Resp BP Pulse Ox 11/12/18 08:06 98.3 F 92 H 20 131/67 98 11/12/18 02:43 98.5 F 81 18 121/51 97 11/11/18 19:35 97.6 F 93 H 18 144/75 99 11/11/18 17:00 83 16 134/66 11/11/18 16:50 90 11 L 132/69 98 11/11/18 16:40 93 H 12 143/68 98 11/11/18 16:30 91 H 18 143/68 99 11/11/18 16:20 87 14 132/69 98 11/11/18 16:10 90 15 132/69 99 11/11/18 16:00 86 13 123/67 99 11/11/18 15:50 85 18 123/67 98 11/11/18 15:40 81 13 123/67 99 11/11/18 15:30 82 19 123/67 98 11/11/18 15:20 82 15 112/73 99 11/11/18 15:10 84 16 112/73 98 11/11/18 15:00 84 13 121/71 99 11/11/18 14:50 84 14 121/71 99 11/11/18 14:40 86 19 121/71 99 11/11/18 14:30 90 13 112/73 99 11/11/18 14:20 89 13 134/63 99 11/11/18 14:12 98.9 F 11/11/18 14:10 89 12 134/63 98 11/11/18 14:00 88 11 L 121/71 97 11/11/18 13:50 78 14 134/63 98 11/11/18 13:40 83 15 134/63 98 11/11/18 13:30 81 37 H 134/63 97 11/11/18 13:20 82 30 H 127/65 98 11/11/18 13:10 79 36 H 127/65 98 11/11/18 13:00 83 40 H 127/65 97 11/11/18 12:50 81 33 H 127/74 98 11/11/18 12:40 82 37 H 127/74 99 11/11/18 12:30 79 18 127/74 11/11/18 12:20 82 15 127/74 98 11/11/18 12:10 80 15 127/74 98 11/11/18 12:00 85 11 L 127/74 99 11/11/18 11:50 85 9 L 137/72 100 - Physical Examination General: No Apparent Distress HEENT: Positive: PERRL Neck: Positive: trachea midline Cardiac: Positive: Reg Rate and Rhythm Lungs: Positive: Decreased Breath Sounds Neuro: Positive: Grossly Intact Abdomen: Positive: Soft Skin: Positive: Clear Extremities: Absent: edema - Labs and Meds Cardiac Enzymes 11/12/18 Range/Units 04:35 AST 18 (5-40) units/L CBC 11/11/18 11/12/18 Range/Units 20:29 04:35 WBC 11.5 H 9.2 (4.5-11.0) K/mm3 RBC 3.88 3.43 L (3.65-5.03) M/mm3 Hgb 11.2 L 9.9 L (11.8-15.2) gm/dl Hct 33.8 L 29.9 L (35.5-45.6) % Plt Count 88 L 82 L (140-440) K/mm3 Lymph # 2.1 (1.2-5.4) K/mm3 [place] # 0.9 H (0.0-0.8) K/mm3 Eos # 0.3 (0.0-0.4) K/mm3 Baso # 0.0 (0.0-0.1) K/mm3 Comprehensive Metabolic Panel 11/12/18 Range/Units 04:35 Sodium 140 (137-145) mmol/L Potassium 4.1 (3.6-5.0) mmol/L Chloride 109.8 H (98-107) mmol/L Carbon Dioxide 22 (22-30) mmol/L BUN 21 H (9-20) mg/dL Creatinine 1.2 (0.8-1.5) mg/dL Glucose 98 (75-100) mg/dL Calcium 7.4 L (8.4-10.2) mg/dL AST 18 (5-40) units/L ALT 13 (7-56) units/L Alkaline Phosphatase 37 (35-129) units/L Total Protein 4.0 L D (6.3-8.2) g/dL Albumin 2.3 L (3.9-5) g/dL
--- NOTE | 2018-11-12 13:01 | Progress Note ---
Assessment and Plan Pt feeling well without compl. however h/h noted to be slowly dropping and HR rising Abd soft, non tender stable possibly still slight lower GI bleeding? repeat h/h discussed with GI about f/u colonoscopy and possible cauterization if h/h continues dropping keep NPO Selected Entries 11/12/18 11/12/18 02:43 08:06 Temperature 98.3 F Pulse Rate 81 92 H Respiratory 20 Rate Blood Pressure 131/67 Laboratory Tests 11/11/18 11/11/18 11/12/18 07:24 20:29 04:35 Hgb 12.7 D 11.2 L 9.9 L Hct 38.6 D 33.8 L 29.9 L Objective Vital Signs - 12hr 11/12/18 11/12/18 02:43 08:06 Temperature 98.5 F 98.3 F Pulse Rate 81 92 H Respiratory 18 20 Rate Blood Pressure 121/51 131/67 O2 Sat by Pulse 97 98 Oximetry - Labs 11/12/18 04:35 11/12/18 04:35 Diabetes panel 11/12/18 Range/Units 04:35 Sodium 140 (137-145) mmol/L Potassium 4.1 (3.6-5.0) mmol/L Chloride 109.8 H (98-107) mmol/L Carbon Dioxide 22 (22-30) mmol/L BUN 21 H (9-20) mg/dL Creatinine 1.2 (0.8-1.5) mg/dL Glucose 98 (75-100) mg/dL Calcium 7.4 L (8.4-10.2) mg/dL AST 18 (5-40) units/L ALT 13 (7-56) units/L Alkaline Phosphatase 37 (35-129) units/L Total Protein 4.0 L D (6.3-8.2) g/dL Albumin 2.3 L (3.9-5) g/dL Calcium panel 11/12/18 Range/Units 04:35 Calcium 7.4 L (8.4-10.2) mg/dL Albumin 2.3 L (3.9-5) g/dL Pituitary panel 11/12/18 Range/Units 04:35 Sodium 140 (137-145) mmol/L Potassium 4.1 (3.6-5.0) mmol/L Chloride 109.8 H (98-107) mmol/L Carbon Dioxide 22 (22-30) mmol/L BUN 21 H (9-20) mg/dL Creatinine 1.2 (0.8-1.5) mg/dL Glucose 98 (75-100) mg/dL Calcium 7.4 L (8.4-10.2) mg/dL Adrenal panel 11/12/18 Range/Units 04:35 Sodium 140 (137-145) mmol/L Potassium 4.1 (3.6-5.0) mmol/L Chloride 109.8 H (98-107) mmol/L Carbon Dioxide 22 (22-30) mmol/L BUN 21 H (9-20) mg/dL Creatinine 1.2 (0.8-1.5) mg/dL Glucose 98 (75-100) mg/dL Calcium 7.4 L (8.4-10.2) mg/dL Total Bilirubin 0.70 (0.1-1.2) mg/dL AST 18 (5-40) units/L ALT 13 (7-56) units/L Alkaline Phosphatase 37 (35-129) units/L Total Protein 4.0 L D (6.3-8.2) g/dL Albumin 2.3 L (3.9-5) g/dL
[2018-11-12 13:57] LABS: Basophils % (Auto) 0.4 % (0.0-1.8); Eosinophils # (Auto) 0.2 K/mm3 (0.0-0.4); Eosinophils % (Auto) 2.5 % (0.0-4.3); Hematocrit 29.5 % (35.5-45.6); Hemoglobin 9.8 gm/dl (11.8-15.2); Lymphocytes # (Auto) 1.7 K/mm3 (1.2-5.4); Lymphocytes % (Auto) 18.7 % (13.4-35.0); Mean Corpuscular HGB Conc 33 % (32-34); Mean Corpuscular Volume 87 fl (84-94); Monocytes # (Auto) 0.8 K/mm3 (0.0-0.8); Monocytes % (Auto) 8.6 % (0.0-7.3); Red Blood Count 3.39 M/mm3 (3.65-5.03)
[2018-11-12 14:23] LABS: Platelet Count 89 K/mm3 (140-440)
--- NOTE | 2018-11-12 14:46 | Progress Note ---
Assessment and Plan 68-year-old male with complex past medical history on Effient status post 6 units packed red blood cell transfusion and 2 units of FFP and DDAVP status post coil embolization. GI bleed was due to hepatic flexure bleeding. Initially after coil embolization, patient passed blood until noon the next day which is expected as his colon was full of blood. His vitals improved, and pressors were completely discontinued. Since then, he had flatulence and today has had a episode of blood in the commode. Patient has had some decline of H&H which is now stable since the last H&H. Suspect equilibration and plateau. Ordered more frequent CBC. Patient will need to be monitored for future bleeding or colonic ischemia. If patient has rebleeding or colonic ischemia, then he will require surgical evaluation. No further interventional embolization is appropriate. Subjective Date of service: 11/12/18 Principal diagnosis: GI bleed Interval history: Yesterday, patient had a single bloody bowel movement at noon, and has not had a bloody bowel movement until noon today. H&H has declined and then plateaued, suggestive of equilibration. Patient is in no distress. No abdominal pain. Objective - Constitutional Vitals: Vital Signs - 12hr 11/12/18 11/12/18 11/12/18 02:43 08:06 13:15 Temperature 98.5 F 98.3 F 98.1 F Pulse Rate 81 92 H 85 Respiratory 18 20 20 Rate Blood Pressure 121/51 131/67 145/77 O2 Sat by Pulse 97 98 99 Oximetry General appearance: Present: no acute distress - EENT Eyes: EOM intact ENT: hearing intact - Respiratory Respiratory effort: normal - Gastrointestinal General gastrointestinal: Present: soft, non-tender - Psychiatric Psychiatric: appropriate mood/affect, cooperative - Labs CBC & Chem 7: 11/12/18 13:38 11/12/18 04:35 Labs: Abnormal lab results 11/10/18 11/11/18 11/12/18 Range/Units 18:31 20:29 04:35 WBC 11.5 H (4.5-11.0) K/mm3 RBC 3.43 L (3.65-5.03) M/mm3 Hgb 11.2 L 9.9 L (11.8-15.2) gm/dl Hct 33.8 L 29.9 L (35.5-45.6) % Plt Count 88 L 82 L (140-440) K/mm3 [place] % (Auto) 10.3 H (0.0-7.3) % [place]enzie # 0.9 H (0.0-0.8) K/mm3 Chloride (98-107) mmol/L BUN (9-20) mg/dL Calcium (8.4-10.2) mg/dL Total Protein (6.3-8.2) g/dL Albumin (3.9-5) g/dL Crossmatch See Detail 11/12/18 11/12/18 Range/Units 04:35 13:38 WBC (4.5-11.0) K/mm3 RBC 3.39 L (3.65-5.03) M/mm3 Hgb 9.8 L (11.8-15.2) gm/dl Hct 29.5 L (35.5-45.6) % Plt Count 89 L (140-440) K/mm3 [place] % (Auto) 8.6 H (0.0-7.3) % [place] # (0.0-0.8) K/mm3 Chloride 109.8 H (98-107) mmol/L BUN 21 H (9-20) mg/dL Calcium 7.4 L (8.4-10.2) mg/dL Total Protein 4.0 L D (6.3-8.2) g/dL Albumin 2.3 L (3.9-5) g/dL Crossmatch Medications & Allergies - Medications Allergies/Adverse Reactions: Allergies No Known Allergies Allergy (Verified 06/19/15 11:33) Home Medications: Home Medications Medication Instructions Recorded Confirmed Last Taken Type Aspirin EC 81 mg PO QDAY 07/31/15 11/11/18 07/29/15 History Effient 10 mg PO DAILY 07/31/15 11/11/18 07/29/15 History Lisinopril [Zestril TAB] 40 mg PO QDAY 07/31/15 11/11/18 07/30/15 History Metoprolol [Lopressor TAB] 25 mg PO BID 07/31/15 11/11/18 07/31/15 History Simvastatin 40 mg PO DAILY 07/31/15 11/11/18 07/31/15 History Active Medications: Generic Name Dose Route Start Last Admin Trade Name Freq PRN Reason Stop Dose Admin Acetaminophen 650 mg 11/10/18 20:30 Tylenol PO Q4H PRN Pain MILD(1-3)/Fever >100.5/GAYTAN Docusate Sodium 100 mg 11/10/18 22:00 11/12/18 09:38 Colace PO 100 mg BID JACK Administration Nicotine 14 mg 11/11/18 10:00 11/12/18 09:37 Habitrol TD 14 mg QDAY JACK Administration Ondansetron HCl 4 mg 11/10/18 20:30 Zofran IV Q6H PRN Nausea And Vomiting Pantoprazole Sodium 40 mg 11/11/18 23:00 11/12/18 09:38 Protonix IV 40 mg BID JACK Administration Sodium Chloride 10 ml 11/10/18 22:00 11/12/18 09:38 Sodium Chloride Flush Syringe 10 Ml IV 10 ml BID JACK Administration Sodium Chloride 10 ml 11/10/18 20:30 Sodium Chloride Flush Syringe 10 Ml IV PRN PRN LINE FLUSH
--- NOTE | 2018-11-12 15:41 | Progress Note ---
Assessment and Plan Assessment and plan: 68-year-old -[place] male who is a current smoker with history of coronary artery disease status post stent 1, HLD, HTN, GERD, ID (2013), and CHF who presents to [facility] ED with complaints of painless bright red blood per rectum. Pt states that he started experiencing painless bright red blood per rectum earlier today. On presentation pt was normotensive with hgb within normal limits. He was alert and oriented x3, and able to maintain conversation. Around 8pm while coming back from restroom via wheelchair pt had vagal event and briefly lost consciousness. Approximately 30 minutes later he had large bright red blood bowel movement. He became hypotensive, with SBP in the 70's. He received fluid resuscitation, and was transfued. A central line was placed and he was started on levophed gtt to maintain MAP of 65. CT angiogram shows active extravasation GI and IR evaluated the patient status post embolization. No new Episodes of bleeding, received 2 units PRBC --Lower GI Bleed s/p Coil embolization of distal marginal branches of descending branch of the right celiac artery by IR GI following, No new Episodes of bleeding --Hemorrhagic shock acute blood loss s/p 2 units PRBC transfusion, Hb 12.7-9.8 today Monitor H&H and transfuse as needed --Hypotension/hemorrhagic shock/blood pressures better On Levophed, today patient's blood pressures are reasonable Closely monitor, off LEVOPHED --History of CAD status post PCI; Management per cardiology --Ongoing Tobacco abuse Smoking cessation, nicotine patch as needed DVT prophylaxis; SCD No pharmacologic anticoagulation due to GI bleeding --CODE STATUS Monitor closely and adjust management as needed Consults and Recommendations noted and appreciated Discussed with recommend to continue NPO Continue IV fluids D5 normal saline History Interval history: Patient seen and examined medical records reviewed Patient has mild drop in H&H, surgeon wanted to continue nothing by mouth We'll start IV fluids D5 normal saline Patient is comfortable in no new complaints Vital signs noted Hospitalist Physical - Constitutional Vitals: Temp Pulse Resp BP Pulse Ox 98.1 F 85 20 145/77 99 11/12/18 13:15 11/12/18 13:15 11/12/18 13:15 11/12/18 13:15 11/12/18 13:15 General appearance: Present: no acute distress, well-nourished - EENT Eyes: Present: PERRL, EOM intact - Neck Neck: Present: supple, normal ROM - Respiratory Respiratory effort: normal Respiratory: bilateral: diminished, negative: rales, rhonchi, wheezing - Cardiovascular Rhythm: regular Heart Sounds: Present: S1 & S2 - Extremities Extremities: no ischemia, No edema - Abdominal General gastrointestinal: soft, non-tender, non-distended, normal bowel sounds - Integumentary Integumentary: Present: clear, warm - Psychiatric Psychiatric: appropriate mood/affect, cooperative - Neurologic Neurologic: moves all extremities Results - Labs CBC & Chem 7: 11/12/18 13:38 11/12/18 04:35 Labs: Laboratory Last Values WBC 8.9 K/mm3 (4.5-11.0) 11/12/18 13:38 RBC 3.39 M/mm3 (3.65-5.03) L 11/12/18 13:38 Hgb 9.8 gm/dl (11.8-15.2) L 11/12/18 13:38 Hct 29.5 % (35.5-45.6) L 11/12/18 13:38 MCV 87 fl (84-94) 11/12/18 13:38 MCH 29 pg (28-32) 11/12/18 13:38 MCHC 33 % (32-34) 11/12/18 13:38 RDW 15.0 % (13.2-15.2) 11/12/18 13:38 Plt Count 89 K/mm3 (140-440) L 11/12/18 13:38 Lymph % (Auto) 18.7 % (13.4-35.0) 11/12/18 13:38 [place] % (Auto) 8.6 % (0.0-7.3) H 11/12/18 13:38 Eos % (Auto) 2.5 % (0.0-4.3) 11/12/18 13:38 Baso % (Auto) 0.4 % (0.0-1.8) 11/12/18 13:38 Lymph # 1.7 K/mm3 (1.2-5.4) 11/12/18 13:38 [place] # 0.8 K/mm3 (0.0-0.8) 11/12/18 13:38 Eos # 0.2 K/mm3 (0.0-0.4) 11/12/18 13:38 Baso # 0.0 K/mm3 (0.0-0.1) 11/12/18 13:38 Seg Neutrophils % 69.8 % (40.0-70.0) 11/12/18 13:38 Seg Neutrophils # 6.2 K/mm3 (1.8-7.7) 11/12/18 13:38 PT 17.8 Sec. (12.2-14.9) H 11/10/18 18:31 INR 1.51 (0.87-1.13) H 11/10/18 18:31 APTT 20.7 Sec. (24.2-36.6) L 11/10/18 18:31 Sodium 140 mmol/L (137-145) 11/12/18 04:35 Potassium 4.1 mmol/L (3.6-5.0) 11/12/18 04:35 Chloride 109.8 mmol/L (98-107) H 11/12/18 04:35 Carbon Dioxide 22 mmol/L (22-30) 11/12/18 04:35 12 mmol/L 11/12/18 04:35 BUN 21 mg/dL (9-20) H 11/12/18 04:35 1.2 mg/dL (0.8-1.5) 11/12/18 04:35 Estimated GFR > 60 ml/min 11/12/18 04:35 18 % 11/12/18 04:35 Glucose 98 mg/dL (75-100) 11/12/18 04:35 POC Glucose 101 (70-105) 11/10/18 20:11 Calcium 7.4 mg/dL (8.4-10.2) L 11/12/18 04:35 Magnesium 1.80 mg/dL (1.7-2.3) 11/12/18 04:35 0.70 mg/dL (0.1-1.2) 11/12/18 04:35 AST 18 units/L (5-40) 11/12/18 04:35 ALT 13 units/L (7-56) 11/12/18 04:35 37 units/L (35-129) 11/12/18 04:35 987 units/L (55-170) H 11/10/18 18:31 4.0 g/dL (6.3-8.2) L D 11/12/18 04:35 2.3 g/dL (3.9-5) L 11/12/18 04:35 1.4 % 11/12/18 04:35 Blood Type O POSITIVE 11/10/18 18:31 Antibody Screen Negative 11/10/18 18:31 Crossmatch See Detail 11/10/18 18:31 Active Medications - Current Medications Current Medications: Generic Name Dose Route Start Last Admin Trade Name Freq PRN Reason Stop Dose Admin Acetaminophen 650 mg 11/10/18 20:30 Tylenol PO Q4H PRN Pain MILD(1-3)/Fever >100.5/GAYTAN Docusate Sodium 100 mg 11/10/18 22:00 11/12/18 09:38 Colace PO 100 mg BID JACK Administration Dextrose/Sodium Chloride 1,000 mls @ 150 mls/hr 11/12/18 16:00 D5ns IV DIRECT JACK Nicotine 14 mg 11/11/18 10:00 11/12/18 09:37 Habitrol TD 14 mg QDAY JACK Administration Ondansetron HCl 4 mg 11/10/18 20:30 Zofran IV Q6H PRN Nausea And Vomiting Pantoprazole Sodium 40 mg 11/11/18 23:00 11/12/18 09:38 Protonix IV 40 mg BID JACK Administration Sodium Chloride 10 ml 11/10/18 22:00 11/12/18 09:38 Sodium Chloride Flush Syringe 10 Ml IV 10 ml BID JACK Administration Sodium Chloride 10 ml 11/10/18 20:30 Sodium Chloride Flush Syringe 10 Ml IV PRN PRN LINE FLUSH
--- NOTE | 2018-11-12 18:41 | Gastroenterology Progress Note ---
Assessment and Plan 68 yo male with lower GI bleed, likely diverticular bleed. Upon admission, CTA showed extravasation from the ascending colon to which he underwent a coil embolization of distal marginal branches of the ascending branch of the right colic artery by IR. # Lower GI bleed. - s/p a coil embolization of distal marginal branches of the ascending branch of the right colic artery by IR. - with the embolization, he became hemodynamically stable and off pressors. - expect to have some residual blood per rectum given the significant initial bleeding episode. H/H downtrended to 9.9 but repeat stable at 9.8. Rec - monitor H/H. - discussed with Dr. Avilez and no further IR intervention would be beneficial. - monitor for signs of recurrent active bleeding. - will follow. Subjective Date of service: 11/12/18 Principal diagnosis: GI bleed Interval history: patient s/p embolization for lower GI bleeding and was off pressors. Transferred to the floor. GI reconsulted for drop in H/H and another episode of blood per rectum. He denies any abdominal pain, nausea/vomiting, or melena. Objective - Constitutional Vitals: Temp Pulse Resp BP Pulse Ox 98.1 F 85 20 145/77 99 11/12/18 13:15 11/12/18 13:15 11/12/18 13:15 11/12/18 13:15 11/12/18 13:15 General appearance: no acute distress - EENT Eyes: EOM intact ENT: hearing intact - Neck Neck: supple - Respiratory Respiratory effort: normal - Cardiovascular Rhythm: regular Heart Sounds: Present: S1 & S2 - Gastrointestinal General gastrointestinal: Present: soft, non-tender, non-distended, normal bowel sounds - Integumentary Integumentary: Present: clear, warm - Neurologic Neurological: alert and oriented x3 - Labs CBC & Chem 7: 11/12/18 13:38 11/12/18 04:35 Labs: Laboratory Results - last 24 hr 11/10/18 11/11/18 11/12/18 18:31 20:29 04:35 WBC 11.5 H 9.2 RBC 3.88 3.43 L Hgb 11.2 L 9.9 L Hct 33.8 L 29.9 L MCV 87 87 MCH 29 29 MCHC 33 33 RDW 15.0 14.7 Plt Count 88 L 82 L Lymph % (Auto) 23.1 [place] % (Auto) 10.3 H Eos % (Auto) 2.7 Baso % (Auto) 0.3 Lymph # 2.1 [place] # 0.9 H Eos # 0.3 Baso # 0.0 Seg Neutrophils % 63.6 Seg Neutrophils # 5.8 Sodium Potassium Chloride Carbon Dioxide Anion Gap BUN Creatinine Estimated GFR BUN/Creatinine Ratio Glucose Calcium Magnesium Total Bilirubin AST ALT Alkaline Phosphatase Total Protein Albumin Albumin/Globulin Ratio Blood Type O POSITIVE Antibody Screen Negative Crossmatch See Detail 11/12/18 11/12/18 04:35 13:38 WBC 8.9 RBC 3.39 L Hgb 9.8 L Hct 29.5 L MCV 87 MCH 29 MCHC 33 RDW 15.0 Plt Count 89 L Lymph % (Auto) 18.7 [place] % (Auto) 8.6 H Eos % (Auto) 2.5 Baso % (Auto) 0.4 Lymph # 1.7 [place] # 0.8 Eos # 0.2 Baso # 0.0 Seg Neutrophils % 69.8 Seg Neutrophils # 6.2 Sodium 140 Potassium 4.1 Chloride 109.8 H Carbon Dioxide 22 Anion Gap 12 BUN 21 H Creatinine 1.2 Estimated GFR > 60 BUN/Creatinine Ratio 18 Glucose 98 Calcium 7.4 L Magnesium 1.80 Total Bilirubin 0.70 AST 18 ALT 13 Alkaline Phosphatase 37 Total Protein 4.0 L D Albumin 2.3 L Albumin/Globulin Ratio 1.4 Blood Type Antibody Screen Crossmatch
[2018-11-12] MEDS: D5W/0.9% NACL 1,000 ML IV SCH (18:52)
[2018-11-12 20:19] LABS: Basophils % (Auto) 0.3 % (0.0-1.8); Eosinophils # (Auto) 0.3 K/mm3 (0.0-0.4); Hematocrit 29.7 % (35.5-45.6); Hemoglobin 9.9 gm/dl (11.8-15.2); Lymphocytes # (Auto) 1.8 K/mm3 (1.2-5.4); Lymphocytes % (Auto) 21.6 % (13.4-35.0); Mean Corpuscular HGB Conc 33 % (32-34); Mean Corpuscular Volume 88 fl (84-94); Monocytes # (Auto) 0.7 K/mm3 (0.0-0.8); Monocytes % (Auto) 8.4 % (0.0-7.3); Red Blood Count 3.38 M/mm3 (3.65-5.03); Red Cell Distribution Width 14.6 % (13.2-15.2)
[2018-11-12 20:22] LABS: Platelet Count 93 K/mm3 (140-440)
[2018-11-13] MEDS: D5W/0.9% NACL 1,000 ML IV SCH ×2 (01:26→07:35)
[2018-11-13 01:51] LABS: Basophils % (Auto) 0.3 % (0.0-1.8); Eosinophils # (Auto) 0.3 K/mm3 (0.0-0.4); Eosinophils % (Auto) 4.5 % (0.0-4.3); Hematocrit 27.2 % (35.5-45.6); Hemoglobin 9.1 gm/dl (11.8-15.2); Lymphocytes # (Auto) 1.7 K/mm3 (1.2-5.4); Lymphocytes % (Auto) 24.4 % (13.4-35.0); Mean Corpuscular HGB Conc 34 % (32-34); Mean Corpuscular Volume 87 fl (84-94); Monocytes # (Auto) 0.6 K/mm3 (0.0-0.8); Monocytes % (Auto) 8.3 % (0.0-7.3); Red Blood Count 3.13 M/mm3 (3.65-5.03); Red Cell Distribution Width 14.7 % (13.2-15.2)
[2018-11-13 02:03] LABS: Platelet Count 86 K/mm3 (140-440)
[2018-11-13] MEDS: DOCUSATE SODIUM 100 MG CAP PO SCH ×2 (09:33→21:25)
[2018-11-13] MEDS: PANTOPRAZOLE 40 MG INJ IV SCH ×2 (09:33→21:18)
[2018-11-13] MEDS: NICOTINE 14 MG/24 HR PATCH TD SCH (09:33)
[2018-11-13] MEDS ORDERED: SODIUM CHLORIDE 0.9% 500 ML 500 ML IV NR (10:14)
[2018-11-13 10:25] LABS: Basophils % (Auto) 0.4 % (0.0-1.8); Eosinophils # (Auto) 0.3 K/mm3 (0.0-0.4); Hematocrit 30.1 % (35.5-45.6); Lymphocytes % (Auto) 15.6 % (13.4-35.0); Mean Corpuscular HGB Conc 33 % (32-34); Mean Corpuscular Volume 88 fl (84-94); Monocytes # (Auto) 0.6 K/mm3 (0.0-0.8); Monocytes % (Auto) 8.6 % (0.0-7.3); Platelet Count 104 K/mm3 (140-440); Red Blood Count 3.44 M/mm3 (3.65-5.03); Red Cell Distribution Width 14.7 % (13.2-15.2)
--- NOTE | 2018-11-13 10:51 | Progress Note ---
Assessment and Plan Pt feeling well without complaints. h/h's appear to have stabilized Abd soft, non tender clinically stable begin cl liq diet f/u cbc in am advance to reg diet in am if h/h's remain stable Selected Entries 11/13/18 08:32 Temperature 98.3 F Pulse Rate 76 Respiratory 16 Rate Blood Pressure 163/81 Laboratory Tests 11/12/18 11/13/18 11/13/18 19:58 00:56 09:38 WBC 6.7 Hgb 9.9 L 9.1 L 10.0 L Hct 29.7 L 27.2 L 30.1 L Objective Vital Signs - 12hr 11/13/18 11/13/18 11/13/18 01:47 05:00 08:32 Temperature 98.9 F 98.3 F Pulse Rate 77 70 76 Respiratory 20 16 Rate Blood Pressure 148/75 163/81 O2 Sat by Pulse 97 98 Oximetry - Labs 11/13/18 09:38 11/12/18 04:35
[2018-11-13] MEDS ORDERED: DESMOPRESSIN ACETATE 20 MCG in SODIUM CHLORIDE 0.9% 50 ML IV ONE (11:00)
--- NOTE | 2018-11-13 12:51 | Event Note ---
Date: 11/13/18 H&H stable. Decline was equilibration. Blood was probably residual blood. Currently without symptoms. Continue to monitor or signs/symptoms of ischemic colitis.
[2018-11-13 13:27] LABS: Basophils % (Auto) 0.4 % (0.0-1.8); Eosinophils # (Auto) 0.3 K/mm3 (0.0-0.4); Eosinophils % (Auto) 4.8 % (0.0-4.3); Hematocrit 29.2 % (35.5-45.6); Hemoglobin 9.9 gm/dl (11.8-15.2); Lymphocytes # (Auto) 1.1 K/mm3 (1.2-5.4); Lymphocytes % (Auto) 16.8 % (13.4-35.0); Mean Corpuscular HGB Conc 34 % (32-34); Mean Corpuscular Volume 87 fl (84-94); Monocytes # (Auto) 0.5 K/mm3 (0.0-0.8); Monocytes % (Auto) 7.9 % (0.0-7.3); Platelet Count 102 K/mm3 (140-440); Red Blood Count 3.36 M/mm3 (3.65-5.03); Red Cell Distribution Width 14.8 % (13.2-15.2)
[2018-11-13 13:34] LABS: INR 1.1 (0.87-1.13)
[2018-11-13 13:35] LABS: Partial Thromboplastin Time 27.8 Sec. (24.2-36.6)
--- NOTE | 2018-11-13 15:27 | Gastroenterology Progress Note ---
Assessment and Plan 68 yo male with lower GI bleed, likely diverticular bleed. Upon admission, CTA showed extravasation from the ascending colon to which he underwent a coil embolization of distal marginal branches of the ascending branch of the right colic artery by IR. # Lower GI bleed. - s/p a coil embolization of distal marginal branches of the ascending branch of the right colic artery by IR. - with the embolization, he became hemodynamically stable and off pressors. - expect to have some residual blood per rectum given the significant initial bleeding episode. H/H downtrended yesterday but stable overnight and throughout today. Rec - monitor H/H. - discussed with Dr. Avilez and no further IR intervention would be beneficial. - monitor for signs of recurrent active bleeding. - advance diet as tolerated. - if H/H stable tomorrow, ok for discharge per GI standpoint. will sign off. Please call with questions. Subjective Date of service: 11/13/18 Principal diagnosis: GI bleed Interval history: He had brown stool today without any blood. No abdominal pain. Objective - Constitutional Vitals: Temp Pulse Resp BP Pulse Ox 98.6 F 85 16 167/79 98 11/13/18 14:28 11/13/18 14:28 11/13/18 14:28 11/13/18 14:28 11/13/18 14:28 General appearance: no acute distress - EENT Eyes: EOM intact ENT: hearing intact - Neck Neck: supple - Respiratory Respiratory effort: normal - Cardiovascular Rhythm: regular Heart Sounds: Present: S1 & S2 - Gastrointestinal General gastrointestinal: Present: soft, non-tender - Integumentary Integumentary: Present: clear, warm - Neurologic Neurological: alert and oriented x3 - Psychiatric Psychiatric: appropriate mood/affect - Labs CBC & Chem 7: 11/13/18 12:33 11/12/18 04:35 Labs: Laboratory Results - last 24 hr 11/12/18 11/13/18 11/13/18 19:58 00:56 09:38 WBC 8.5 7.0 6.7 RBC 3.38 L 3.13 L 3.44 L Hgb 9.9 L 9.1 L 10.0 L Hct 29.7 L 27.2 L 30.1 L MCV 88 87 88 MCH 29 29 29 MCHC 33 34 33 RDW 14.6 14.7 14.7 Plt Count 93 L 86 L 104 L Lymph % (Auto) 21.6 24.4 15.6 [place] % (Auto) 8.4 H 8.3 H 8.6 H Eos % (Auto) 4.0 4.5 H 5.0 H Baso % (Auto) 0.3 0.3 0.4 Lymph # 1.8 1.7 1.0 L [place] # 0.7 0.6 0.6 Eos # 0.3 0.3 0.3 Baso # 0.0 0.0 0.0 Seg Neutrophils % 65.7 62.5 70.4 H Seg Neutrophils # 5.6 4.4 4.7 PT INR APTT 11/13/18 11/13/18 12:33 12:33 WBC 6.8 RBC 3.36 L Hgb 9.9 L Hct 29.2 L MCV 87 MCH 29 MCHC 34 RDW 14.8 Plt Count 102 L Lymph % (Auto) 16.8 [place] % (Auto) 7.9 H Eos % (Auto) 4.8 H Baso % (Auto) 0.4 Lymph # 1.1 L [place] # 0.5 Eos # 0.3 Baso # 0.0 Seg Neutrophils % 70.1 H Seg Neutrophils # 4.8 PT 13.9 INR 1.10 APTT 27.8
--- NOTE | 2018-11-13 15:57 | Progress Note ---
Assessment and Plan Assessment and plan: 68-year-old -[place] male who is a current smoker with history of coronary artery disease status post stent 1, HLD, HTN, GERD, [place] (2013), and CHF who presents to [facility] ED with complaints of painless bright red blood per rectum. Pt states that he started experiencing painless bright red blood per rectum earlier today. On presentation pt was normotensive with hgb within normal limits. He was alert and oriented x3, and able to maintain conversation. Around 8pm while coming back from restroom via wheelchair pt had vagal event and briefly lost consciousness. Approximately 30 minutes later he had large bright red blood bowel movement. He became hypotensive, with SBP in the 70's. He received fluid resuscitation, and was transfued. A central line was placed and he was started on levophed gtt to maintain MAP of 65. CT angiogram shows active extravasation GI and IR evaluated the patient status post embolization. No new Episodes of bleeding, received 2 units PRBC --Lower GI Bleed s/p Coil embolization of distal marginal branches of descending branch of the right celiac artery by IR No new Episodes of bleeding --Hemorrhagic shock acute blood loss s/p 2 units PRBC transfusion, Hb 12.7-9.8 today H&H stable and transfuse as needed --Hypotension/hemorrhagic shock/blood pressures better Off Levophed, today patient's blood pressures are reasonable Closely monitor --History of CAD status post PCI; Continue cardiac medications --Ongoing Tobacco abuse Smoking cessation advised, nicotine patch as needed --DVT prophylaxis; SCD No pharmacologic anticoagulation due to GI bleeding --Full CODE STATUS Monitor closely and adjust management as needed Consults and Recommendations noted and appreciated Discussed with Dr Nandini,MIN advice to advance diet Possible discharge tomorrow if stable .Continue IV fluids D5 normal saline Disposition; continue inpatient care, discharge when patient is medically stable History Interval history: Patient seen and examined medical records reviewed No new episodes of bleeding. Hemoglobin stable Alert awake oriented 3 Vital signs noted, Hospitalist Physical - Constitutional Vitals: Temp Pulse Resp BP Pulse Ox 98.6 F 85 16 167/79 98 11/13/18 14:28 11/13/18 14:28 11/13/18 14:28 11/13/18 14:28 11/13/18 14:28 General appearance: Present: no acute distress, well-nourished - EENT Eyes: Present: PERRL, EOM intact - Neck Neck: Present: supple, normal ROM - Respiratory Respiratory effort: normal Respiratory: bilateral: diminished, negative: rales, rhonchi, wheezing - Cardiovascular Rhythm: regular Heart Sounds: Present: S1 & S2 - Extremities Extremities: no ischemia, No edema - Abdominal General gastrointestinal: soft, non-tender, non-distended, normal bowel sounds - Integumentary Integumentary: Present: clear, warm - Psychiatric Psychiatric: appropriate mood/affect, cooperative - Neurologic Neurologic: CNII-XII intact, moves all extremities Results - Labs CBC & Chem 7: 11/13/18 12:33 11/12/18 04:35 Labs: Laboratory Last Values WBC 6.8 K/mm3 (4.5-11.0) 11/13/18 12:33 RBC 3.36 M/mm3 (3.65-5.03) L 11/13/18 12:33 Hgb 9.9 gm/dl (11.8-15.2) L 11/13/18 12:33 Hct 29.2 % (35.5-45.6) L 11/13/18 12:33 MCV 87 fl (84-94) 11/13/18 12:33 MCH 29 pg (28-32) 11/13/18 12:33 MCHC 34 % (32-34) 11/13/18 12:33 RDW 14.8 % (13.2-15.2) 11/13/18 12:33 Plt Count 102 K/mm3 (140-440) L 11/13/18 12:33 Lymph % (Auto) 16.8 % (13.4-35.0) 11/13/18 12:33 [place] % (Auto) 7.9 % (0.0-7.3) H 11/13/18 12:33 Eos % (Auto) 4.8 % (0.0-4.3) H 11/13/18 12:33 Baso % (Auto) 0.4 % (0.0-1.8) 11/13/18 12:33 Lymph # 1.1 K/mm3 (1.2-5.4) L 11/13/18 12:33 [place] # 0.5 K/mm3 (0.0-0.8) 11/13/18 12:33 Eos # 0.3 K/mm3 (0.0-0.4) 11/13/18 12:33 Baso # 0.0 K/mm3 (0.0-0.1) 11/13/18 12:33 Seg Neutrophils % 70.1 % (40.0-70.0) H 11/13/18 12:33 Seg Neutrophils # 4.8 K/mm3 (1.8-7.7) 11/13/18 12:33 PT 13.9 Sec. (12.2-14.9) 11/13/18 12:33 INR 1.10 (0.87-1.13) 11/13/18 12:33 APTT 27.8 Sec. (24.2-36.6) 11/13/18 12:33 Sodium 140 mmol/L (137-145) 11/12/18 04:35 Potassium 4.1 mmol/L (3.6-5.0) 11/12/18 04:35 Chloride 109.8 mmol/L (98-107) H 11/12/18 04:35 Carbon Dioxide 22 mmol/L (22-30) 11/12/18 04:35 12 mmol/L 11/12/18 04:35 BUN 21 mg/dL (9-20) H 11/12/18 04:35 1.2 mg/dL (0.8-1.5) 11/12/18 04:35 Estimated GFR > 60 ml/min 11/12/18 04:35 18 % 11/12/18 04:35 Glucose 98 mg/dL (75-100) 11/12/18 04:35 POC Glucose 101 (70-105) 11/10/18 20:11 Calcium 7.4 mg/dL (8.4-10.2) L 11/12/18 04:35 Magnesium 1.80 mg/dL (1.7-2.3) 11/12/18 04:35 0.70 mg/dL (0.1-1.2) 11/12/18 04:35 AST 18 units/L (5-40) 11/12/18 04:35 ALT 13 units/L (7-56) 11/12/18 04:35 37 units/L (35-129) 11/12/18 04:35 987 units/L (55-170) H 11/10/18 18:31 4.0 g/dL (6.3-8.2) L D 11/12/18 04:35 2.3 g/dL (3.9-5) L 11/12/18 04:35 1.4 % 11/12/18 04:35 Blood Type O POSITIVE 11/10/18 18:31 Antibody Screen Negative 11/10/18 18:31 Crossmatch See Detail 11/10/18 18:31 Active Medications - Current Medications Current Medications: Generic Name Dose Route Start Last Admin Trade Name Freq PRN Reason Stop Dose Admin Acetaminophen 650 mg 11/10/18 20:30 11/12/18 21:08 Tylenol PO 650 mg Q4H PRN Administration Pain MILD(1-3)/Fever >100.5/GAYTAN Docusate Sodium 100 mg 11/10/18 22:00 11/13/18 09:33 Colace PO 100 mg BID JACK Administration Sodium Chloride 500 mls @ 0 mls/hr 11/13/18 10:14 Nacl 0.9% 500 Ml IV 11/13/18 23:59 ONCE NR As Directed Nicotine 14 mg 11/11/18 10:00 11/13/18 09:33 Habitrol TD 14 mg QDAY JACK Administration Ondansetron HCl 4 mg 11/10/18 20:30 Zofran IV Q6H PRN Nausea And Vomiting Pantoprazole Sodium 40 mg 11/11/18 23:00 11/13/18 09:33 Protonix IV 40 mg BID JACK Administration Sodium Chloride 10 ml 11/10/18 22:00 11/13/18 09:36 Sodium Chloride Flush Syringe 10 Ml IV 10 ml BID JACK Administration Sodium Chloride 10 ml 11/10/18 20:30 Sodium Chloride Flush Syringe 10 Ml IV PRN PRN LINE FLUSH
--- NOTE | 2018-11-13 17:06 | Progress Note ---
Assessment and Plan - Patient Problems (1) CAD (coronary artery disease) Current Visit: No Status: Acute Plan to address problem: Patient has a history of coronary artery disease, status post coronary stenting in 2013. He was maintained on aspirin and Effient onto his current presentation with GI bleed and severe anemia. He has completed more than 2 years of dual oral antiplatelet therapy, and therefore does not need further Effient therapy. We will defer to gastroenterology regarding timing of resumption of sole antiplatelet therapy with aspirin 81 mg. Continue other guideline-directed medical therapy as tolerated for his underlying coronary artery disease. Subjective Date of service: 11/13/18 Principal diagnosis: GI bleed Interval history: Patient is comfortable, no cardiac complaints. Objective Vital Signs Temp Pulse Resp BP Pulse Ox 11/13/18 14:28 98.6 F 85 16 167/79 98 11/13/18 08:32 98.3 F 76 16 163/81 98 11/13/18 05:00 70 11/13/18 01:47 98.9 F 77 20 148/75 97 11/12/18 22:08 16 11/12/18 21:08 16 11/12/18 20:51 98.6 F 90 16 157/78 98 - Physical Examination General: No Apparent Distress HEENT: Positive: PERRL Neck: Positive: trachea midline Cardiac: Positive: Reg Rate and Rhythm Lungs: Positive: Decreased Breath Sounds Neuro: Positive: Grossly Intact Abdomen: Positive: Soft Skin: Positive: Clear Extremities: Absent: edema - Labs and Meds Coagulation 11/13/18 Range/Units 12:33 PT 13.9 (12.2-14.9) Sec. INR 1.10 (0.87-1.13) APTT 27.8 (24.2-36.6) Sec. CBC 11/12/18 11/13/18 11/13/18 Range/Units 19:58 00:56 09:38 WBC 8.5 7.0 6.7 (4.5-11.0) K/mm3 RBC 3.38 L 3.13 L 3.44 L (3.65-5.03) M/mm3 Hgb 9.9 L 9.1 L 10.0 L (11.8-15.2) gm/dl Hct 29.7 L 27.2 L 30.1 L (35.5-45.6) % Plt Count 93 L 86 L 104 L (140-440) K/mm3 Lymph # 1.8 1.7 1.0 L (1.2-5.4) K/mm3 [place] # 0.7 0.6 0.6 (0.0-0.8) K/mm3 Eos # 0.3 0.3 0.3 (0.0-0.4) K/mm3 Baso # 0.0 0.0 0.0 (0.0-0.1) K/mm3 11/13/18 Range/Units 12:33 WBC 6.8 (4.5-11.0) K/mm3 RBC 3.36 L (3.65-5.03) M/mm3 Hgb 9.9 L (11.8-15.2) gm/dl Hct 29.2 L (35.5-45.6) % Plt Count 102 L (140-440) K/mm3 Lymph # 1.1 L (1.2-5.4) K/mm3 [place] # 0.5 (0.0-0.8) K/mm3 Eos # 0.3 (0.0-0.4) K/mm3 Baso # 0.0 (0.0-0.1) K/mm3
[2018-11-13 21:22] LABS: Basophils % (Auto) 0.4 % (0.0-1.8); Eosinophils # (Auto) 0.3 K/mm3 (0.0-0.4); Eosinophils % (Auto) 4.8 % (0.0-4.3); Hematocrit 29.1 % (35.5-45.6); Hemoglobin 9.9 gm/dl (11.8-15.2); Lymphocytes # (Auto) 1.5 K/mm3 (1.2-5.4); Lymphocytes % (Auto) 21.8 % (13.4-35.0); Mean Corpuscular HGB Conc 34 % (32-34); Mean Corpuscular Volume 87 fl (84-94); Monocytes # (Auto) 0.7 K/mm3 (0.0-0.8); Monocytes % (Auto) 9.6 % (0.0-7.3); Platelet Count 109 K/mm3 (140-440); Red Blood Count 3.34 M/mm3 (3.65-5.03); Red Cell Distribution Width 14.5 % (13.2-15.2)
[2018-11-14] MEDS ORDERED: hydrALAZINE 20 MG/1 ML INJ IV PRN (00:09)
[2018-11-14 06:23] LABS: Basophils % (Auto) 0.4 % (0.0-1.8); Eosinophils # (Auto) 0.4 K/mm3 (0.0-0.4); Eosinophils % (Auto) 5.6 % (0.0-4.3); Hematocrit 29.8 % (35.5-45.6); Hemoglobin 10.1 gm/dl (11.8-15.2); Lymphocytes # (Auto) 1.6 K/mm3 (1.2-5.4); Lymphocytes % (Auto) 23.2 % (13.4-35.0); Mean Corpuscular HGB Conc 34 % (32-34); Mean Corpuscular Volume 86 fl (84-94); Monocytes # (Auto) 0.7 K/mm3 (0.0-0.8); Monocytes % (Auto) 9.8 % (0.0-7.3); Platelet Count 122 K/mm3 (140-440); Red Blood Count 3.47 M/mm3 (3.65-5.03); Red Cell Distribution Width 14.5 % (13.2-15.2)
[2018-11-14] MEDS: DOCUSATE SODIUM 100 MG CAP PO SCH (10:15)
[2018-11-14] MEDS: NICOTINE 14 MG/24 HR PATCH TD SCH (10:15)
[2018-11-14] MEDS: PANTOPRAZOLE 40 MG INJ IV SCH (10:15)
[2018-11-14 10:48] LABS: Basophils % (Auto) 0.5 % (0.0-1.8); Eosinophils # (Auto) 0.2 K/mm3 (0.0-0.4); Eosinophils % (Auto) 3.5 % (0.0-4.3); Hematocrit 31.2 % (35.5-45.6); Hemoglobin 10.6 gm/dl (11.8-15.2); Lymphocytes # (Auto) 1.2 K/mm3 (1.2-5.4); Lymphocytes % (Auto) 16.6 % (13.4-35.0); Mean Corpuscular HGB Conc 34 % (32-34); Mean Corpuscular Volume 87 fl (84-94); Monocytes # (Auto) 0.7 K/mm3 (0.0-0.8); Monocytes % (Auto) 9.6 % (0.0-7.3); Platelet Count 128 K/mm3 (140-440); Red Blood Count 3.58 M/mm3 (3.65-5.03); Red Cell Distribution Width 14.6 % (13.2-15.2)
--- NOTE | 2018-11-14 10:50 | Gastroenterology Progress Note ---
Assessment and Plan 1.LGIB -H/H 10.6/31.2-stable -continue to monitor H/H and transfuse as needed -no active signs of bleeding overnight or this bob -Upon admission, CTA showed extravasation from the ascending colon -s/p coil embolization of distal marginal branches of the ascending branch of the right colic artery by IR -last colonoscopy [address] Lipscomb that showed polypoid mass descending colon, rectal/descending polyp, diverticulosis, and internal hemorrhoids -etiology-most likely diverticular in nature -however given hx of polypoid mass lesion with no f/u, recommend colonoscopy as outpatient upon discharge for further evaluation to assess previously seen lesion -clinically, patient is stable. Denies abd pain or N/v. Tolerating clears. -advance diet to regular -okay to resume ASA (no further need for Effient therapy per cardiology) -continue PPI and supportive care -patient okay to be d/c per GI standpoint with f/u in clinic in 1-2 weeks to schedule colonoscopy as above -will sign off, please call back if needed Subjective Date of service: 11/14/18 Principal diagnosis: GI bleed Interval history: No acute distress or active signs of bleeding overnight or this am. Objective - Constitutional Vitals: Temp Pulse Resp BP Pulse Ox 99.0 F 89 18 143/76 98 11/14/18 07:21 11/14/18 07:21 11/14/18 07:21 11/14/18 07:21 11/14/18 07:21 General appearance: no acute distress - EENT Eyes: PERRL, EOM intact ENT: hearing intact - Respiratory Respiratory effort: normal Respiratory: bilateral: CTA - Cardiovascular Rhythm: regular - Gastrointestinal General gastrointestinal: Present: soft, non-tender, non-distended, normal bowel sounds - Neurologic Neurological: alert and oriented x3 - Labs CBC & Chem 7: 11/14/18 10:17 11/12/18 04:35 Labs: Laboratory Results - last 24 hr 11/13/18 11/13/18 11/13/18 12:33 12:33 20:40 WBC 6.8 6.9 RBC 3.36 L 3.34 L Hgb 9.9 L 9.9 L Hct 29.2 L 29.1 L MCV 87 87 MCH 29 30 MCHC 34 34 RDW 14.8 14.5 Plt Count 102 L 109 L Lymph % (Auto) 16.8 21.8 [place] % (Auto) 7.9 H 9.6 H Eos % (Auto) 4.8 H 4.8 H Baso % (Auto) 0.4 0.4 Lymph # 1.1 L 1.5 [place] # 0.5 0.7 Eos # 0.3 0.3 Baso # 0.0 0.0 Seg Neutrophils % 70.1 H 63.4 Seg Neutrophils # 4.8 4.4 PT 13.9 INR 1.10 APTT 27.8 11/14/18 11/14/18 03:36 10:17 WBC 6.9 7.2 RBC 3.47 L 3.58 L Hgb 10.1 L 10.6 L Hct 29.8 L 31.2 L MCV 86 87 MCH 29 30 MCHC 34 34 RDW 14.5 14.6 Plt Count 122 L 128 L Lymph % (Auto) 23.2 16.6 [place] % (Auto) 9.8 H 9.6 H Eos % (Auto) 5.6 H 3.5 Baso % (Auto) 0.4 0.5 Lymph # 1.6 1.2 [place] # 0.7 0.7 Eos # 0.4 0.2 Baso # 0.0 0.0 Seg Neutrophils % 61.0 69.8 Seg Neutrophils # 4.2 5.0 PT INR APTT
--- NOTE | 2018-11-14 12:14 | Progress Note ---
Assessment and Plan Pt feeling well without compl. salena diet Abd soft, non tender h/h's stable surgically stable may d/c from surg perspective rto this Fri will also need outpt f/u and colonoscopy as per GI Selected Entries 11/14/18 07:21 Temperature 99.0 F Pulse Rate 89 Respiratory 18 Rate Blood Pressure 143/76 Laboratory Tests 11/13/18 11/14/18 00:56 03:36 Hgb 9.1 L 10.1 L Hct 27.2 L 29.8 L Objective Vital Signs - 12hr 11/14/18 11/14/18 11/14/18 00:35 01:36 02:27 Temperature 98.2 F Pulse Rate 71 82 Respiratory 18 Rate Blood Pressure 167/88 167/88 O2 Sat by Pulse Oximetry 11/14/18 11/14/18 11/14/18 03:15 04:09 07:21 Temperature 98.3 F 99.0 F Pulse Rate 89 Respiratory 18 Rate Blood Pressure 155/74 143/76 O2 Sat by Pulse 96 98 Oximetry - Labs 11/14/18 10:17 11/12/18 04:35
--- NOTE | 2018-11-14 13:02 | Progress Note ---
Assessment and Plan - Patient Problems (1) CAD (coronary artery disease) Current Visit: No Status: Acute Plan to address problem: Patient has a history of coronary artery disease, status post coronary stenting in 2013. He was maintained on aspirin and Effient until his current presentation with GI bleed and severe anemia. He has completed more than 2 years of dual oral antiplatelet therapy, and therefore does not need further Effient therapy. We will defer to gastroenterology regarding timing of resumption of sole antiplatelet therapy with aspirin 81 mg. Continue other guideline-directed medical therapy as tolerated for his underlying coronary artery disease. Okay for cardiac discharge and follow-up in our office 2 weeks. Subjective Date of service: 11/14/18 Principal diagnosis: GI bleed Interval history: Patient is comfortable, no cardiac complaints. Objective Vital Signs Temp Pulse Resp BP Pulse Ox 11/14/18 07:21 99.0 F 89 18 143/76 98 11/14/18 04:09 155/74 11/14/18 03:15 98.3 F 96 11/14/18 02:27 82 167/88 11/14/18 01:36 98.2 F 18 167/88 11/14/18 00:35 71 11/13/18 21:31 163/83 11/13/18 20:42 89 99 11/13/18 20:34 98.7 F 20 170/88 11/13/18 14:28 98.6 F 85 16 167/79 98 - Physical Examination General: Appears Well, No Apparent Distress HEENT: Positive: PERRL Neck: Positive: trachea midline Cardiac: Positive: Reg Rate and Rhythm Lungs: Positive: Decreased Breath Sounds Neuro: Positive: Grossly Intact Abdomen: Positive: Soft Skin: Positive: Clear Extremities: Absent: edema - Labs and Meds Coagulation 11/13/18 Range/Units 12:33 PT 13.9 (12.2-14.9) Sec. INR 1.10 (0.87-1.13) APTT 27.8 (24.2-36.6) Sec. CBC 11/13/18 11/13/18 11/14/18 Range/Units 12:33 20:40 03:36 WBC 6.8 6.9 6.9 (4.5-11.0) K/mm3 RBC 3.36 L 3.34 L 3.47 L (3.65-5.03) M/mm3 Hgb 9.9 L 9.9 L 10.1 L (11.8-15.2) gm/dl Hct 29.2 L 29.1 L 29.8 L (35.5-45.6) % Plt Count 102 L 109 L 122 L (140-440) K/mm3 Lymph # 1.1 L 1.5 1.6 (1.2-5.4) K/mm3 [place] # 0.5 0.7 0.7 (0.0-0.8) K/mm3 Eos # 0.3 0.3 0.4 (0.0-0.4) K/mm3 Baso # 0.0 0.0 0.0 (0.0-0.1) K/mm3 11/14/18 Range/Units 10:17 WBC 7.2 (4.5-11.0) K/mm3 RBC 3.58 L (3.65-5.03) M/mm3 Hgb 10.6 L (11.8-15.2) gm/dl Hct 31.2 L (35.5-45.6) % Plt Count 128 L (140-440) K/mm3 Lymph # 1.2 (1.2-5.4) K/mm3 [place] # 0.7 (0.0-0.8) K/mm3 Eos # 0.2 (0.0-0.4) K/mm3 Baso # 0.0 (0.0-0.1) K/mm3
--- NOTE | 2018-11-14 14:37 | Discharge Summary ---
Providers - Providers Date of Admission: 11/10/18 20:30 Date of discharge: 11/14/18 Attending physician: FARA KENNY 11/10/18 18:23 Consult to Physician [CONS] Urgent Comment: Consulting Provider: SHAHIDA CORDOVA Physician Instructions: Reason For Exam: lgib 11/10/18 20:36 Consult to Physician [CONS] Routine Comment: Consulting Provider: DUSTY MONSON Physician Instructions: Reason For Exam: est pt cardiac clearance for colonoscopy 11/11/18 00:47 Consult to Physician [CONS] Routine Comment: Consulting Provider: CECY CHA Physician Instructions: Reason For Exam: massive GI bleed Primary care physician: [employer] Hospitalization Reason for admission: Rectal Bleeding Condition: Stable Pertinent studies: CTA abd and pelvis CXR Procedures: Coil embolization of distal marginal branches of the ascending branch of the right colic artery with a 2 mm x 4 cm and 2 mm x 6 cm coil Hospital course: 68-year-old -[place] male who is a current smoker with history of coronary artery disease status post stent 1, HLD, HTN, GERD, [place] (2013), and CHF who presents to [facility] ED with complaints of painless bright red blood per rectum. Pt states that he started experiencing painless bright red blood per rectum earlier today. On presentation pt was normotensive with hgb within normal limits. He was alert and oriented x3, and able to maintain conversation. Around 8pm while coming back from restroom via wheelchair pt had vagal event and briefly lost consciousness. Approximately 30 minutes later he had large bright red blood bowel movement. He became hypotensive, with SBP in the 70's. He received fluid resuscitation, and was transfued. A central line was placed and he was started on levophed gtt to maintain MAP of 65. CT angiogram shows active extravasation GI and IR evaluated the patient status post embolization. No new Episodes of bleeding, received 2 units PRBC --Lower GI Bleed s/p Coil embolization of distal marginal branches of descending branch of the right celiac artery by IR No new Episodes of bleeding --Hemorrhagic shock acute blood loss s/p 2 units PRBC transfusion, Hb 12.7-9.8 today H&H stable and transfuse as needed --Hypotension/hemorrhagic shock/blood pressures better Off Levophed, today patient's blood pressures are reasonable Closely monitor --History of CAD status post PCI; Continue cardiac medications --Ongoing Tobacco abuse Smoking cessation advised, nicotine patch as needed --DVT prophylaxis; SCD No pharmacologic anticoagulation due to GI bleeding --Full CODE STATUS cleared by GI and surgery for DC and f/u per schedule Stable at discharge Disposition: DC-01 TO HOME OR SELFCARE Time spent for discharge: 32 min Core Measure Documentation - Palliative Care Palliative Care/ Comfort Measures: Not Applicable - Core Measures Any of the following diagnoses?: none Exam - Constitutional Vitals: Temp Pulse Resp BP Pulse Ox 99.0 F 89 18 143/76 98 11/14/18 07:21 11/14/18 07:21 11/14/18 07:21 11/14/18 07:21 11/14/18 07:21 General appearance: Present: no acute distress, well-nourished - EENT Eyes: Present: PERRL, EOM intact - Neck Neck: Present: supple, normal ROM - Respiratory Respiratory effort: normal Respiratory: bilateral: diminished, negative: rales, rhonchi, wheezing Plan Activity: no restrictions Diet: other (cardiac diet) Additional Instructions: Patient has finished 2 years of dual oral antiplatelets., Patient does not need Effient anymore,. GI said OK to continue aspirin. Follow up with: PRIMARY CARE, [Primary Care Provider] - 3-5 Days KATARINA HORNER MD [Staff Physician] - 7 Days DUSTY MONSON MD [Staff Physician] - 7 Days Forms: Accompanied Note Prescriptions: Docosanol [Abreva] 1 applicatio TP 5XD #1 cream..g. Nicotine [Habitrol] 14 mg TD QDAY #30 patch Pantoprazole [Protonix] 40 mg PO BID #30 tablet
[2018-11-14 14:41] VITALS: BP 156/78
== END 2018-11-14 16:10 | disposition home or self-care (01) | DRG 356 ==
LOC: ED 18:00 → 4A 20:30 → CC1 23:35 → 2B-ACE 11-11 17:25
PROVIDERS: ADMIT Internal Medicine; ATTEND Internal Medicine
PROC: 30233N1 Transfusion of Nonautologous Red Blood Cells into Peripheral Vein, Percutaneous Approach (ICD-10-PCS; 2018-11-10)
PROC: 05H433Z Insertion of Infusion Device into Left Innominate Vein, Percutaneous Approach (ICD-10-PCS; 2018-11-10)
PROC: B54NZZA Ultrasonography of Left Upper Extremity Veins, Guidance (ICD-10-PCS; 2018-11-10)
PROC: 04L63DZ Occlusion of Right Colic Artery with Intraluminal Device, Percutaneous Approach (ICD-10-PCS; principal; 2018-11-11)
PROC: B3101ZZ Fluoroscopy of Thoracic Aorta using Low Osmolar Contrast (ICD-10-PCS; 2018-11-11)
PROC: B4141ZZ Fluoroscopy of Superior Mesenteric Artery using Low Osmolar Contrast (ICD-10-PCS; 2018-11-11)
PROC: B41J1ZZ Fluoroscopy of Other Lower Arteries using Low Osmolar Contrast (ICD-10-PCS; 2018-11-11)
PROC: B4121ZZ Fluoroscopy of Hepatic Artery using Low Osmolar Contrast (ICD-10-PCS; 2018-11-11)
PROC: B5141ZZ Fluoroscopy of Left Jugular Veins using Low Osmolar Contrast (ICD-10-PCS; 2018-11-11)
PROC: B5171ZZ Fluoroscopy of Left Subclavian Vein using Low Osmolar Contrast (ICD-10-PCS; 2018-11-11)
PROC: B51N1ZZ Fluoroscopy of Left Upper Extremity Veins using Low Osmolar Contrast (ICD-10-PCS; 2018-11-11)
PROC: B5181ZZ Fluoroscopy of Superior Vena Cava using Low Osmolar Contrast (ICD-10-PCS; 2018-11-11)
PROC: B3111ZZ Fluoroscopy of Right Brachiocephalic-Subclavian Artery using Low Osmolar Contrast (ICD-10-PCS; 2018-11-11)
PROC: B3121ZZ Fluoroscopy of Left Subclavian Artery using Low Osmolar Contrast (ICD-10-PCS; 2018-11-11)
PROC: B3151ZZ Fluoroscopy of Bilateral Common Carotid Arteries using Low Osmolar Contrast (ICD-10-PCS; 2018-11-11)
PROC: 06H033Z Insertion of Infusion Device into Inferior Vena Cava, Percutaneous Approach (ICD-10-PCS; 2018-11-11)
PROC: B5191ZA Fluoroscopy of Inferior Vena Cava using Low Osmolar Contrast, Guidance (ICD-10-PCS; 2018-11-11)
PROC: B549ZZA Ultrasonography of Inferior Vena Cava, Guidance (ICD-10-PCS; 2018-11-11)
PROC: 05PYX3Z Removal of Infusion Device from Upper Vein, External Approach (ICD-10-PCS; 2018-11-11)
PROC: 30233K1 Transfusion of Nonautologous Frozen Plasma into Peripheral Vein, Percutaneous Approach (ICD-10-PCS; 2018-11-11)
DX: K57.31 Diverticulosis of large intestine without perforation or abscess with bleeding (principal); R57.8 Other shock; E43 Unspecified severe protein-calorie malnutrition; K21.9 Gastro-esophageal reflux disease without esophagitis; E78.00 Pure hypercholesterolemia, unspecified; I50.9 Heart failure, unspecified; I11.0 Hypertensive heart disease with heart failure; I25.10 Atherosclerotic heart disease of native coronary artery without angina pectoris; E78.5 Hyperlipidemia, unspecified; F17.200 Nicotine dependence, unspecified, uncomplicated; Z95.5 Presence of coronary angioplasty implant and graft; Z68.26 Body mass index [BMI] 26.0-26.9, adult; I25.2 Old myocardial infarction; Z71.6 Tobacco abuse counseling; Z79.82 Long term (current) use of aspirin
CPT/HCPCS: 36248; 36415; 36556; 37244; 71045; 74174; 75726; 80048; 80053; 82271; 82550; 82962; 83735; 85014; 85018; 85025; 85027; 85610; 85730; 86850; 86900; 86901; 86920; 93005; 93010; 96374; 99292; 99406; G0378; A4649; C1751; C1760; C1769; C1887; C9113; J0360; J1644; J2250; J2597; J2704; J3010; J3475; J7030; J7040; J7042; P9016; P9017; Q9967

== ENCOUNTER 2019-05-19 09:12 | Outpatient (CLI) | payer MEDICARE ==
--- NOTE | 2019-05-19 10:36 | XRay Report ---
XR knee 3V RT INDICATION / CLINICAL INFORMATION: RIGHT KNEE PAIN M25.561. COMPARISON: None available. FINDINGS: BONES/JOINT(S): No acute fracture or subluxation. Mild tricompartmental DJD. Small joint effusion. No aggressive appearing bone lesion. SOFT TISSUES: No significant abnormality. ADDITIONAL FINDINGS: None. Signer Name: Jeronimo Conrad MD Signed: 05/19/2019 10:32 AM Workstation Name: [id number]
== END 2019-05-19 09:13 | disposition home or self-care (01) ==
LOC: SPVIMAG 09:12
PROVIDERS: ATTEND Family Medicine
DX: M17.11 Unilateral primary osteoarthritis, right knee (principal); M25.461 Effusion, right knee

== ENCOUNTER 2019-12-27 11:55 | Outpatient (CLI) | payer MEDICARE ==
--- NOTE | 2019-12-27 14:03 | XRay Report ---
LUMBOSACRAL SPINE 3 VIEWS INDICATION: PAIN IN LEG/ SCIATICA. COMPARISON: None. IMPRESSION: Normal alignment. Moderate to severe degenerative changes are identified at L5-S1. Mild degenerative changes are identified at the remaining levels. No acute osseous or soft tissue abnorm ality. LEFT TIBIA AND FIBULA INDICATION: PAIN IN LEG/ SCIATICA. COMPARISON: None. IMPRESSION: No acute osseous or soft tissue abnormality. LEFT FEMUR 2 VIEWS INDICATION: PAIN IN LEG/ SCIATICA. COMPARISON: None. IMPRESSION: No acute osseous or soft tissue abnormality. Signer Name: Neville Capellan Jr, MD Signed: 12/27/2019 1:59 PM Workstation Name: [id number]
== END 2019-12-27 11:56 | disposition home or self-care (01) ==
LOC: SPVIMAG 11:55
DX: M47.817 Spondylosis without myelopathy or radiculopathy, lumbosacral region (principal); M79.606 Pain in leg, unspecified; M54.30 Sciatica, unspecified side
CPT/HCPCS: 72100